=== PATIENT | female | born 1930 | race Caucasian/White ===

== ENCOUNTER 2016-12-01 11:44 | Inpatient (IN) ==
[2016-12-01] MEDS ORDERED: Famotidine 20 MG/2 ML VIAL IVP ONE (12:51)
[2016-12-01] MEDS ORDERED: *HR* Labetalol 100 MG/20 ML MDV IVP PRN (12:51)
[2016-12-01] MEDS ORDERED: *HR* Promethazine 25 MG/ML VIAL IVP PRN (12:51)
[2016-12-01] MEDS ORDERED: *HR* Morphine 2 MG/ML SYRINGE IVP PRN (12:51)
[2016-12-01] MEDS ORDERED: *HR* Propofol 200 MG/20 ML VIAL IVP ONE (12:53)
[2016-12-01] MEDS ORDERED: *HR* Midazolam HCl 2 MG/2 ML VIAL ONE (12:53)
[2016-12-01] MEDS ORDERED: *HR* FentaNYL (PF) 100 MCG/2 ML VIAL ONE (12:53)
[2016-12-01] MEDS ORDERED: Lidocaine -MPF 2% 2 ML VIAL ONE (12:54)
[2016-12-01] MEDS ORDERED: *HR* Succinylcholine 200 MG/10 ML VIAL IVP ONE (12:54)
--- NOTE | 2016-12-01 13:01 | Anesthesia Evaluation PreOp ---
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 Vertigo.) Other Medical History: Renal (stageIII renal insufficiency), Diabetes Type II ( maintained on Novolog, Levemir,), Other (OHOGAMIUT/hearing aids) Anesthesia History: No Prior Anesthetic Complications, Past Anesthesia (CABG x v 2013, sternal re-wiring 02/2015, Appy, Misti, IVC Filter, BTL, Ctaract surgery , Abcess surgery) Alcohol Use: none Drug use: none Medications and Allergies Aspirin 81 mg PO DAILY 11/06/15 [History] Insulin ASPART [NovoLOG] 4 - 10 unit SQ TIDWM PRN 11/06/15 [History] Insulin DETEMIR [Levemir] 12 unit SQ QAM 11/06/15 [History] Simvastatin [Zocor] 10 mg PO DAILY 11/06/15 [History] Gabapentin [Neurontin] 100 mg PO TID PRN 11/28/15 [History] Rivaroxaban [Xarelto] 10 mg PO DAILY 07/04/16 [History] amLODIPine [Norvasc] 5 mg PO BID #60 tablet 07/06/16 [Rx] Lisinopril [Zestril] 40 mg PO DAILY 11/05/16 [History] hydroCHLOROthiazide [Hydrochlorothiazide] 12.5 mg PO DAILY 11/05/16 [History] FentaNYL PATCH [Duragesic] 12 mcg TD Q72H #2 patch.td72 11/17/16 [Rx] OxyCODONE/APAP 10/325 [Percocet 10/325 MG] 1 each PO Q4H #20 tablet 11/17/16 [Rx ] Lidocaine Patch [Lidoderm 5% patch] 1 each TP DAILY PRN 12/01/16 [History] Methyl Salicylate/Menthol [Bengay] 1 appl TP BID PRN 12/01/16 [History] Metoprolol [Lopressor] 12.5 mg PO BID 12/01/16 [History] Allergies Penicillins [PCN] Allergy (Verified 12/01/16 12:33) Rash Hydromorphone [From Dilaudid] Adverse Reaction (Verified 12/01/16 12:33) Gastrointestinal Upset - Meds/Allergy Pre-op Review Medications Reviewed: Yes Allergies Reviewed: Yes Beta Blockers on Current Med List: No Anesthesia Results - Labs Laboratory Tests 11/21/16 11/21/16 11/28/16 18:53 18:53 15:15 WBC 8.8 RBC 3.73 L Hgb 11.8 Hct 36.4 Plt Count 423 H PT 14.7 H INR 1.4 APTT 32.9 Sodium 141 Potassium 4.0 Chloride 104 Carbon Dioxide 26 BUN 27 H Creatinine 1.35 H Est GFR (Non-Af Amer) 37 L Glucose 115 H Est Mean Plasma Glucose 11/28/16 15:15 WBC RBC Hgb Hct Plt Count PT INR APTT Sodium Potassium Chloride Carbon Dioxide BUN Creatinine Est GFR (Non-Af Amer) Glucose Est Mean Plasma Glucose 157 - Imaging EKG: image reviewed (62bpm SR, non-specific ST-T wave abnormality) Anesthesia Exam O2 Sat Height 1.6 m Weight 83.915 kg Height: 5'3" Weight: 185# BMI = 33 NPO (# of Hours): MNoc - HEENT Pupil (Motor): Pupils equal, EOMI Mallampati: II Teeth: Edentulous Denture Type: Upper: Complete Oral Opening: Greater than 3 - GAS MAIN FITTER LOC: Oriented GAS MAIN FITTER Motor: Normal RUE, Normal RLE, Normal LLE, Normal Face, Deficit LUE GAS MAIN FITTER Sensory: Normal: RUE, RLE, LLE, Face, Deficit: LUE - Cardiac Rhythm: Regular Murmur: None - Pulmonary Breath Sounds: bilateral Clear Respiratory Effort: Symmetrical Anesthesia Assess/Plan ASA Score: 3 (CAD, DM, HTN, Chol, ALICE) Modified Jb Scale for Level of Consciousness: Cooperative, oriented, and tranquil Anesthetic Plan: General, Regional Autologous Blood: No Monitoring Plan: Standard Monitors Recovery Plan: PACU Anes Supervising Prov Stmt: Pt seen/evaluated, R&B Discussed questions answered and consent obtained. Catalina Layton MD
--- NOTE | 2016-12-01 13:03 | History & Physical Report ---
Date of Encounter: 12/01/16 Time of Encounter: 13:03 24 Hour HP Update - Instructions Instructions: If the History and Physical is less than 30 days old and was completed prior to A.M. admission and or procedure and has NOT been updated on calendar day of procedure please complete this update prior to performing procedure. - Update Patient reports changes in Medical Condition: No Changes in examination, assessment, or condition: No Changes in Medication: No Preop tests/diagnostics Reviewed: Yes Surgery Remains Indicated: Yes Consent for Planned Operative Procedure(s) Verified: Yes - Pre-Operative Checklist Preoperative Checklist Indicated: No Prophylactic Antibiotic Ordered: Yes Is VTE Prophylaxis Indicated?: Yes
[2016-12-01] MEDS ORDERED: ROPIVACAINE HCL/PF 0.5% 30 ML VIAL ONE (13:07)
[2016-12-01] MEDS ORDERED: Tetracaine/PF 20 MG/2 ML AMPUL ONE (13:08)
[2016-12-01] MEDS ORDERED: Gabapentin 300 MG CAPSULE PO STA (13:12)
[2016-12-01] MEDS ORDERED: Acetaminophen IV 1,000 MG/100 ML INFUS..BTL IVPB ONE (13:12)
[2016-12-01] MEDS ORDERED: Clindamycin 900 MG/50 ML 900 MG/50 ML IV.SOLN IVPB ONE (13:24)
[2016-12-01] MEDS ORDERED: Ringers Solution, Lactated 1,000 ML IVC SCH ×2 (13:30→17:15)
[2016-12-01] MEDS ORDERED: Acetaminophen IV 1,000 MG/100 ML INFUS..BTL ONE (14:04)
[2016-12-01] MEDS ORDERED: Bupivacaine/Clonidine Syringe 1 EACH SYRINGE ONE (14:08)
--- NOTE | 2016-12-01 14:24 | Anesthesia Procedures ---
Date of Encounter: 12/01/16 Time of Encounter: 14:22 Procedures: Anesthesia - Nerve Block Procedure Date: 12/01/16 Time: 14:22 Allergies/Adv Reactions: Penicillins [PCN] Allergy (Verified 12/01/16 12:33) Rash Hydromorphone [From Dilaudid] Adverse Reaction (Verified 12/01/16 12:33) Gastrointestinal Upset Pre-op Diagnosis: left shoulder fracture Surgical Procedure: left total shoulder Checklist: Correct Patient Identifier, Correct procedure, History checked Correct side: Left Blood Thinner: Yes (ASA and Lovenox bridge, risks and benefits discussed) Monitor Applied: BP, Pulse Oximetry Supplemental Oxygen via Nasal Cannula (L/min): 2 Sedation: Fentanyl (mcg): 50 Indication: Post Op Analgesia Pre-op Neuro Deficits: No Block Type: Supraclavicular Catheter placed: No Sterile Technique: Yes Ultrasound used: Yes Anatomy identified: Yes Visual spread of Local: Yes Neuro Stimulation: No Blood on Needle Aspiration: No Smooth Injection of Local: Yes Pain with Injection of Local: No Prep: Chlorhexadine Needle: 22 x 50 mm Stimuplex Local: Ropivacaine (0.5%) Volume (cc): 30 Number of Attempts: 1 Complications: None/effective block
[2016-12-01] MEDS ORDERED: EPHEDrine 50 MG/ML VIAL ONE (15:38)
[2016-12-01] MEDS ORDERED: Ondansetron 4 MG/2 ML VIAL ONE (15:52)
[2016-12-01] MEDS ORDERED: Dexamethasone 4 MG/ML VIAL ONE (15:52)
--- NOTE | 2016-12-01 16:23 | Discharge Summary ---
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 (2) History of pulmonary embolus (PE) Priority: Secondary Status: Chronic (3) History of four vessel coronary artery bypass graft Priority: Secondary Status: Chronic (4) DM type 2 (diabetes mellitus, type 2) Priority: Secondary Status: Chronic Qualifiers: Diabetes mellitus complication status: without complication Diabetes mellitus custodial insulin use: unspecified custodial insulin use status Qualified Code(s): E11.9 - Type 2 diabetes mellitus without complications (5) CKD (chronic kidney disease) stage 3, GFR 30-59 ml/min Priority: Secondary Status: Chronic (6) Chronic lower back pain Priority: Secondary Status: Chronic Qualifiers: Back pain laterality: unspecified Sciatica presence: unspecified whether sciatica present Qualified Code(s): M54.5 - Low back pain; G89.29 - Other chronic pain (7) Fracture, humerus, proximal Priority: Primary Status: Acute Qualifiers: Encounter type: subsequent encounter Fracture type: closed Fracture morphology: other fracture Fracture alignment: displaced Laterality: left Fracture healing: with routine healing Qualified Code(s): S42.292D - Other displaced fracture of upper end of left humerus, subsequent encounter for fracture with routine healing (8) Hypertension Priority: Secondary Status: Chronic Qualifiers: Hypertension type: unspecified secondary hypertension Qualified Code(s): I15.9 - Secondary hypertension, unspecified; I15 - Secondary hypertension - Discharge Medications Home Medications: Aspirin 81 mg PO DAILY 11/06/15 [History] Insulin ASPART [NovoLOG] 4 - 10 unit SQ TIDWM PRN 11/06/15 [History] Insulin DETEMIR [Levemir] 12 unit SQ QAM 11/06/15 [History] Simvastatin [Zocor] 10 mg PO DAILY 11/06/15 [History] Gabapentin [Neurontin] 100 mg PO TID PRN 11/28/15 [History] Rivaroxaban [Xarelto] 10 mg PO DAILY 07/04/16 [History] amLODIPine [Norvasc] 5 mg PO BID #60 tablet 07/06/16 [Rx] Lisinopril [Zestril] 40 mg PO DAILY 11/05/16 [History] hydroCHLOROthiazide [Hydrochlorothiazide] 12.5 mg PO DAILY 11/05/16 [History] FentaNYL PATCH [Duragesic] 12 mcg TD Q72H #2 patch.td72 11/17/16 [Rx] OxyCODONE/APAP 10/325 [Percocet 10/325 MG] 1 each PO Q4H #20 tablet 11/17/16 [Rx ] Lidocaine Patch [Lidoderm 5% patch] 1 each TP DAILY PRN 12/01/16 [History] Methyl Salicylate/Menthol [Bengay] 1 appl TP BID PRN 12/01/16 [History] Metoprolol [Lopressor] 12.5 mg PO BID 12/01/16 [History] Allergies/Adverse Reactions: Allergies Penicillins [PCN] Allergy (Verified 12/01/16 12:33) Rash Hydromorphone [From Dilaudid] Adverse Reaction (Verified 12/01/16 12:33) Gastrointestinal Upset Labs on day of discharge: Labs from last 24 hours 12/01/16 13:46 POC Glucose 198 H Primary care physician: Vic Glasgow MD - Patient Status Disposition: Transfer Inpatient Rehab Fac Condition: Good Functional capacity at discharge: independent ambulation Overall status at discharge: patient is progressing back to baseline - Discharge Instructions Follow Up With: Vic Glasgow MD [Primary Care Provider] - - Hospital Course Hospital course: Ms. Velasco is a 85 year old female The patient had an uneventful postoperative course. They received antibiotics and physical therapy and were discharged in stable condition. There will follow -up in the office in 2 weeks. - Time Spent with Patient Total time spent providing and/or coordinating discharge services:
--- NOTE | 2016-12-01 16:29 | Orthopedic Operative Note ---
Date of procedure: 12/01/16 Pre-op diagnosis: Displaced left proximal humerus fracture Post-op diagnosis: same Procedure: Procedure: Left Reverse total shoulder replacment, Estimated blood loss: 100 cc Hardware: Metal and polyethylene replacement Arthrex glenoid baseplate: Small , 2 4.5 screws. 1 6.5 screw, glenosphere: 39+4 , humeral stem: 9 , poly insert: 3 constrained Procedural Notes: Displaced comminuted proximal humerus fracture Operative procedure: The patient was brought to the operating room and placed on the operating room table. After general anesthesia was administered the operative shoulder was examined. Findings were noted. The patient was placed in the modified beachchair position. All pressure points were padded appropriately. And the head was stabilized in the neutral position. The operative extremity was prepped and draped in the sterile surgical fashion. The patient received IV antibiotics prior to skin incision. A standard deltopectoral approach was made to the operative shoulder. Incision was made to the skin and subcutaneous tissue,hemo stasis was obtained with Bovie cautery. Using careful blunt dissection the cephalic vein was identified and mobilized medially. The deltopectoral interval was developed and the clavipectoral fascia was incised. The lesser tuberosity was identified and tagged with 2 #2 fiber loops and 2 #2 FiberWire suture. The greater tuberosity was identified and tagged with 6 #5 FiberWire suture. The humeral head was removed. Anterior and posterior Bankart retractors were placed to expose the glenoid. The glenoid guide was seated and the centering hole was made. It was reamed with the appropriate reamer. The small baseplate was seated and secured with (2 ) 4.5 screws and one 6.5 screw. The baseplate was irrigated and dried and the appropriate last year was seated and secured with the Croft taper. The Croft taper was tested and found to be secure the humerus was redislocated and prepared with the diaphyseal reamers, followed by a broaching process up to the appropriate size in 20 degrees of retro-version. Trial reduction found the shoulder to be relocatable. Trial components were removed and [address] on either side of the bicpital groove and filled with #5 fiberwire for vertical fixation of the tuberosities. The real humeral component was impaced in place in 20 degrees of retroversion. Trial reduction found the shoulder to be relocatable and stable with the appropriate inserts. Trial component was removed and the real implant/s was seated and secured the shoulder was reduced. The shoulder had excellent motion and excellent stability and no evidence of dislocation. The greater tuberosity was reduced and repaired to the implant with 2 # 5 fiberwire sutures. the lesser tuberosity was reduced and repaired to this construct with 2 #5 fiberwire sutures. Vertical fixation of the tuberosities was accomplished with the #5 fiberwire sutures in the humeral shaft in a box stitch type repair. The deep tissue was irrigated with pulse irrigation. The deltopectoral interval was closed with a running #1 PDS suture, subcutaneous tissue was irrigated and closed with 0 PDS suture, the skin was closed with skin dejan. The patient was placed in a sterile dressing, abduction brace and extubated. The patient was then transferred to the recovery room in stable condition. Anesthesia: GETA Surgeon: Federico Scales Condition: stable Disposition: PACU
--- NOTE | 2016-12-01 16:57 | Anesthesia Evaluation Post Op ---
Date of Encounter: 12/01/16 Time of Encounter: 16:56 - Vital Signs Vital Signs: vss - Lungs Lungs: Clear Ascult./Percussion - Airway Airway: Non-obstructed - Cardiovascular Baseline Rhythm - Mental Status Mental Status: Asleep with brisk response to light stimulation - Pain Pain Scale used: Parviz (Faces) - Nausea Vomiting Nausea Vomiting: Not Present - Hydration Hydration: Ice chips - Discharge PostOp Status: Transfer Patient to floor
[2016-12-01] MEDS ORDERED: MOM Conc 10 ML UD.LIQ PO PRN (17:15)
[2016-12-01] MEDS ORDERED: Sennosides 8.6 MG TABLET PO PRN (17:15)
[2016-12-01] MEDS ORDERED: *HR* OxyCODONE/APAP 10/325 TABLET PO SCH (17:15)
[2016-12-01] MEDS ORDERED: INSULIN ASPART 6 UNIT SQ PRN (17:15)
[2016-12-01] MEDS ORDERED: Naloxone 0.4 MG/ML INJ IVP PRN (17:15)
[2016-12-01] MEDS ORDERED: *HR* FentaNYL PATCH 12 MCG PATCH TD SCH (17:15)
[2016-12-01] MEDS ORDERED: Methyl Salicylate/Menthol 28 GM TUBE TP PRN (17:15)
[2016-12-01 17:23] LABS: Hematocrit 37.3 % (35.3-44.9); Hemoglobin 11.9 g/dL (11.5-15.4)
[2016-12-01] MEDS ORDERED: D5% in Water 1,000 ML IVC PRN (18:15)
[2016-12-01] MEDS ORDERED: *HR* Dextrose 50 % in Water (Syg) 50 ML SYRINGE IVP PRN (18:15)
[2016-12-01] MEDS ORDERED: Dextrose Gel 15 GM PO PRN ×2 (18:15)
[2016-12-01] MEDS: amLODIPine 5 MG TABLET PO SCH (20:27)
[2016-12-01] MEDS: Insulin LISPRO 300 UNITS/3 ML VIAL SQ SCH (20:27)
[2016-12-01] MEDS ORDERED: Temazepam 15 MG CAPSULE PO PRN (21:00)
[2016-12-01] MEDS: Clindamycin 900 MG/50 ML 900 MG/50 ML IV.SOLN IVPB SCH (23:51)
[2016-12-01] MEDS: *HR* OxyCODONE/APAP 10/325 TABLET PO PRN (23:58)
[2016-12-02 04:42] LABS: Hematocrit 32.4 % (35.3-44.9); Hemoglobin 10.4 g/dL (11.5-15.4)
--- NOTE | 2016-12-02 06:47 | Orthopedics Progress Note ---
Date of Encounter: 12/02/16 Time of Encounter: 06:47 - Assessment and Plan (1) ALICE (obstructive sleep apnea) Current Visit: Yes Status: Chronic (2) History of pulmonary embolus (PE) Current Visit: Yes Status: Chronic (3) History of four vessel coronary artery bypass graft Current Visit: Yes Status: Chronic (4) DM type 2 (diabetes mellitus, type 2) Current Visit: No Status: Chronic Qualifiers: Diabetes mellitus complication status: without complication Diabetes mellitus exterminator termite insulin use: unspecified custodial insulin use status Qualified Code(s): E11.9 - Type 2 diabetes mellitus without complications (5) CKD (chronic kidney disease) stage 3, GFR 30-59 ml/min Current Visit: No Status: Chronic (6) Chronic lower back pain Current Visit: No Status: Chronic Qualifiers: Back pain laterality: unspecified Sciatica presence: unspecified whether sciatica present Qualified Code(s): M54.5 - Low back pain; G89.29 - Other chronic pain (7) Fracture, humerus, proximal Current Visit: No Status: Acute Qualifiers: Encounter type: subsequent encounter Fracture type: closed Fracture morphology: other fracture Fracture alignment: displaced Laterality: left Fracture healing: with routine healing Qualified Code(s): S42.292D - Other displaced fracture of upper end of left humerus, subsequent encounter for fracture with routine healing (8) Hypertension Current Visit: No Status: Chronic Qualifiers: Hypertension type: unspecified secondary hypertension Qualified Code(s): I15.9 - Secondary hypertension, unspecified; I15 - Secondary hypertension Subjective Interval history: Patient was seen this morning doing well without complaints. Afebrile vital signs stable. Operative extremity: Neurovascularly intact Dressing clean dry and intact Calves nontender Assessment and plan: Continue with postoperative care Hematocrit 32 Objective Vital signs: Vital Signs Temp Pulse Resp BP Pulse Ox 12/02/16 06:42 98.2 F 61 16 132/69 98 12/02/16 05:16 97 12/02/16 04:30 97.8 F 67 16 143/79 97 12/01/16 23:53 97.8 F 58 17 130/75 95 12/01/16 20:25 97.6 F 88 15 131/78 96 12/01/16 19:25 97.7 F 85 14 156/78 97 12/01/16 18:36 97.6 F 79 14 124/73 96 12/01/16 17:59 97.5 F L 78 12 114/71 94 12/01/16 17:25 97.7 F 79 12 132/72 94 12/01/16 17:06 97.9 F 76 18 127/64 96 12/01/16 16:56 97.9 F 77 18 135/59 96 12/01/16 16:46 78 18 130/64 96 12/01/16 16:36 76 18 127/50 96 12/01/16 16:26 97.4 F L 81 18 139/77 93 12/01/16 14:24 65 18 176/81 99 12/01/16 13:46 98.6 F 73 16 143/73 97 Intake and Output 12/01/16 12/01/16 12/02/16 15:59 23:59 07:59 Intake Total 240 / 240 250 / 250 Output Total 300 / 300 100 / 100 Balance -60 / -60 150 / 150 Intake: IV Fluids 50 / 50 Cleocin Premix 900 MG/50 50 / 50 ML 900 mg In 50 ml @ 50 mls/hr IVPB Q8HR [facility] Rx#: [id number] Oral 240 / 240 200 / 200 Output: Urine 200 / 200 100 / 100 Estimated Blood Loss 100 / 100 Other: Stool Size Small Stool Consistency soft formed # Bowel Movements 1 Weight 83.915 kg Blood Glucose* 198 293 - Labs CBC & BMP: 12/02/16 03:56 Labs: Abnormal lab results Hgb 10.4 g/dL (11.5-15.4) L D 12/02/16 03:56 Hct 32.4 % (35.3-44.9) L 12/02/16 03:56 POC Glucose 293 (58-89) H 12/01/16 20:06 - VTE Documentation of Mechanical Device: Venous foot pump, device Consult Discharge Plan - Plan Referrals: Vic Glasgow MD [Primary Care Provider] -
[2016-12-02] MEDS: Clindamycin 900 MG/50 ML 900 MG/50 ML IV.SOLN IVPB SCH (08:07)
[2016-12-02] MEDS: Insulin LISPRO 300 UNITS/3 ML VIAL SQ SCH ×4 (08:08→21:17)
[2016-12-02] MEDS: *HR* Rivaroxaban 10 MG TABLET PO SCH (08:08)
[2016-12-02] MEDS: amLODIPine 5 MG TABLET PO SCH (08:08)
[2016-12-02] MEDS: hydroCHLOROthiazide 25 MG TABLET PO SCH (08:08)
[2016-12-02] MEDS: Lisinopril 20 MG TABLET PO SCH (08:09)
[2016-12-02] MEDS: Aspirin 81 MG TAB.CHEW PO SCH (08:09)
[2016-12-02] MEDS ORDERED: NON-FORMULARY MEDICATION 1 EACH EACH (Insulin Detemir 12 UNIT) SQ SCH (09:00)
[2016-12-02] MEDS: *HR* OxyCODONE/APAP 10/325 TABLET PO PRN ×3 (10:11→19:56)
[2016-12-02] MEDS: Insulin DETEMIR 100 UNIT/ML X5UNITS SQ SCH (10:13)
[2016-12-02] MEDS: Gabapentin 100 MG CAPSULE PO PRN (12:12)
[2016-12-02] MEDS: Ondansetron 4 MG/2 ML VIAL IVP PRN (13:45)
[2016-12-03] MEDS: amLODIPine 5 MG TABLET PO SCH ×3 (00:06→21:58)
[2016-12-03 04:58] LABS: Hemoglobin 10.3 g/dL (11.5-15.4)
[2016-12-03] MEDS: *HR* OxyCODONE/APAP 10/325 TABLET PO PRN ×2 (06:11→18:07)
[2016-12-03] MEDS: Insulin LISPRO 300 UNITS/3 ML VIAL SQ SCH ×4 (08:41→21:59)
[2016-12-03] MEDS: hydroCHLOROthiazide 25 MG TABLET PO SCH (08:41)
[2016-12-03] MEDS: Aspirin 81 MG TAB.CHEW PO SCH (08:41)
[2016-12-03] MEDS: Lisinopril 20 MG TABLET PO SCH (08:42)
[2016-12-03] MEDS: *HR* Rivaroxaban 10 MG TABLET PO SCH (08:42)
[2016-12-03] MEDS: Gabapentin 100 MG CAPSULE PO PRN ×2 (09:11→21:58)
[2016-12-03] MEDS: Insulin DETEMIR 100 UNIT/ML X5UNITS SQ SCH (10:27)
[2016-12-04] MEDS: *HR* OxyCODONE/APAP 10/325 TABLET PO PRN ×4 (07:36→23:46)
[2016-12-04] MEDS: Lisinopril 20 MG TABLET PO SCH (09:45)
[2016-12-04] MEDS: *HR* Rivaroxaban 10 MG TABLET PO SCH (09:45)
[2016-12-04] MEDS: Insulin LISPRO 300 UNITS/3 ML VIAL SQ SCH ×4 (09:46→20:47)
[2016-12-04] MEDS: amLODIPine 5 MG TABLET PO SCH ×2 (09:46→20:47)
[2016-12-04] MEDS: hydroCHLOROthiazide 25 MG TABLET PO SCH (09:46)
[2016-12-04] MEDS: Aspirin 81 MG TAB.CHEW PO SCH (09:46)
[2016-12-04] MEDS: Insulin DETEMIR 100 UNIT/ML X5UNITS SQ SCH (09:47)
--- NOTE | 2016-12-04 18:17 | Orthopedics Progress Note ---
Date of Encounter: 12/04/16 Time of Encounter: 18:15 - Assessment and Plan (1) Fracture, humerus, proximal Current Visit: No Status: Acute Postoperative day #3, stable Discharge planning Qualifiers: Encounter type: subsequent encounter Fracture type: closed Fracture morphology: other fracture Fracture alignment: displaced Laterality: left Fracture healing: with routine healing Qualified Code(s): S42.292D - Other displaced fracture of upper end of left humerus, subsequent encounter for fracture with routine healing Subjective Principal diagnosis: Left proximal fracture Interval history: Patient comfortable Patient is not ambulating much She is voiding small quantities which she states is baseline Objective Vital signs: Vital Signs Temp Pulse Resp BP Pulse Ox 12/04/16 16:14 98.1 F 71 16 133/70 94 12/04/16 11:40 98.9 F 70 18 128/69 95 12/04/16 07:00 99.2 F 96 16 148/63 93 12/03/16 23:39 98.5 F 89 16 134/68 97 12/03/16 18:20 98.5 F 87 16 159/76 94 Intake and Output 12/04/16 12/04/16 12/04/16 07:59 15:59 23:59 Intake Total 120 / 120 0 / 0 Output Total 300 / 300 25 / 25 Balance -300 / -300 95 / 95 0 / 0 Intake: Oral 120 / 120 0 / 0 Output: Urine 300 / 300 25 / 25 Other: Meal Breakfast Dinner Percent of Meal Consumed 15% 90% Stool Size Small Stool Consistency soft formed Stool Color Brown Blood Glucose* 155 240 194 Incision: clean and dry (Left shoulder dressings 40% soaked through, patient is neurovascular intact distally at left hand) - Labs CBC & BMP: 12/03/16 04:31 Labs: Abnormal lab results Hgb 10.3 g/dL (11.5-15.4) L 12/03/16 04:31 Hct 34.0 % (35.3-44.9) L 12/03/16 04:31 POC Glucose 240 (58-89) H 12/04/16 11:46 - VTE Documentation of Mechanical Device: Venous foot pump, device Consult Discharge Plan - Plan Referrals: Vic Glasgow MD [Primary Care Provider] -
[2016-12-05] MEDS: *HR* OxyCODONE/APAP 10/325 TABLET PO PRN ×3 (04:45→18:40)
[2016-12-05] MEDS: Ondansetron 4 MG/2 ML VIAL IVP PRN (05:58)
[2016-12-05] MEDS: Aspirin 81 MG TAB.CHEW PO SCH (08:17)
[2016-12-05] MEDS: hydroCHLOROthiazide 25 MG TABLET PO SCH (08:18)
[2016-12-05] MEDS: *HR* Rivaroxaban 10 MG TABLET PO SCH (08:18)
[2016-12-05] MEDS: amLODIPine 5 MG TABLET PO SCH ×2 (08:18→21:38)
[2016-12-05] MEDS: Lisinopril 20 MG TABLET PO SCH (08:18)
[2016-12-05] MEDS: Insulin LISPRO 300 UNITS/3 ML VIAL SQ SCH ×4 (08:23→21:38)
[2016-12-05] MEDS: Insulin DETEMIR 100 UNIT/ML X5UNITS SQ SCH (08:33)
--- NOTE | 2016-12-05 09:39 | Orthopedics Progress Note ---
Date of Encounter: 12/05/16 Time of Encounter: 09:38 - Assessment and Plan (1) Fracture, humerus, proximal Current Visit: No Status: Acute POD#4 - Left TSR, due to humerus fracture 12/01/16. NWB to LUE, No Shoulder motion. Stay in slingshot. 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 ICE as tolerated. H/H stable. Encouraged Ensure with mealtimes, continued fluid and MOM as needed. Qualifiers: Encounter type: subsequent encounter Fracture type: closed Fracture morphology: other fracture Fracture alignment: displaced Laterality: left Fracture healing: with routine healing Qualified Code(s): S42.292D - Other displaced fracture of upper end of left humerus, subsequent encounter for fracture with routine healing Subjective Principal diagnosis: Left proximal fracture Interval history: POD#4 - Left TSR-r - due to Proximal humerus fracture Patient doing fair, feeling weak and constipated this morning. Lack of appetitite. She was given Zofran this morning, along with MOM. She admits to having one small BM yesterday. Denies ABD pain. Afebrile, vitals are stable. Repeat H/H 04/07 today. LUE: Dressing c/d/i - approx 20% bloody saturation. Ecchymosis noted. Swelling +, no forearm tenderness. ROM limited, NV intact distally. Objective Vital signs: Vital Signs Temp Pulse Resp BP Pulse Ox 12/05/16 07:19 98.6 F 91 147/76 93 12/05/16 03:31 99.0 F 79 20 151/62 95 12/04/16 23:17 98.9 F 78 20 167/68 100 12/04/16 20:00 96 12/04/16 18:56 98.2 F 78 18 127/59 96 12/04/16 16:14 98.1 F 71 16 133/70 94 12/04/16 11:40 98.9 F 70 18 128/69 95 Intake and Output 12/04/16 12/05/16 12/05/16 23:59 07:59 15:59 Intake Total 0 / 0 0 / 0 120 / 120 Output Total 200 / 200 200 / 200 Balance -200 / -200 -200 / -200 120 / 120 Intake: Oral 0 / 0 0 / 0 120 / 120 Output: Urine 200 / 200 200 / 200 Other: Meal Dinner Breakfast Percent of Meal Consumed 90% 30% Weight 82 kg Blood Glucose* 118 169 Patient Weight 12/05/16 23:59 Weight 82 kg Incision: clean and dry - Labs CBC & BMP: 12/05/16 09:57 Labs: Abnormal lab results Hgb 10.3 g/dL (11.5-15.4) L 12/03/16 04:31 Hct 34.0 % (35.3-44.9) L 12/03/16 04:31 POC Glucose 169 (58-89) H 12/05/16 07:00 - VTE Documentation of Mechanical Device: Venous foot pump, device Consult Discharge Plan - Plan Referrals: Vic Glasgow MD [Primary Care Provider] -
[2016-12-05 10:17] LABS: Hematocrit 30.8 % (35.3-44.9); Hemoglobin 9.7 g/dL (11.5-15.4)
[2016-12-05] MEDS: Gabapentin 100 MG CAPSULE PO PRN ×2 (11:35→18:40)
[2016-12-05] MEDS: ALPRAZolam 0.5 MG TABLET PO PRN (11:36)
[2016-12-05] MEDS ORDERED: 0.9 % Sodium Chloride 500 ML IVC ONE (17:49)
[2016-12-06] MEDS: *HR* OxyCODONE/APAP 10/325 TABLET PO PRN ×2 (00:13→06:16)
--- NOTE | 2016-12-06 06:32 | Orthopedics Progress Note ---
Date of Encounter: 12/06/16 Time of Encounter: 06:32 - Assessment and Plan (1) ALICE (obstructive sleep apnea) Current Visit: Yes Status: Chronic (2) History of pulmonary embolus (PE) Current Visit: Yes Status: Chronic (3) History of four vessel coronary artery bypass graft Current Visit: Yes Status: Chronic (4) DM type 2 (diabetes mellitus, type 2) Current Visit: No Status: Chronic Qualifiers: Diabetes mellitus complication status: without complication Diabetes mellitus extermination inspector insulin use: unspecified senior care insulin use status Qualified Code(s): E11.9 - Type 2 diabetes mellitus without complications (5) CKD (chronic kidney disease) stage 3, GFR 30-59 ml/min Current Visit: No Status: Chronic (6) Chronic lower back pain Current Visit: No Status: Chronic Qualifiers: Back pain laterality: unspecified Sciatica presence: unspecified whether sciatica present Qualified Code(s): M54.5 - Low back pain; G89.29 - Other chronic pain (7) Fracture, humerus, proximal Current Visit: No Status: Acute Qualifiers: Encounter type: subsequent encounter Fracture type: closed Fracture morphology: other fracture Fracture alignment: displaced Laterality: left Fracture healing: with routine healing Qualified Code(s): S42.292D - Other displaced fracture of upper end of left humerus, subsequent encounter for fracture with routine healing (8) Hypertension Current Visit: No Status: Chronic Qualifiers: Hypertension type: unspecified secondary hypertension Qualified Code(s): I15.9 - Secondary hypertension, unspecified; I15 - Secondary hypertension Subjective Principal diagnosis: Left proximal fracture Interval history: Patient was seen this morning doing well without complaints. Afebrile vital signs stable. Operative extremity: Neurovascularly intact Dressing clean dry and intact Calves nontender Assessment and plan: Continue with postoperative care Discharge today Objective Vital signs: Vital Signs Temp Pulse Resp BP Pulse Ox 12/06/16 03:09 98.7 F 73 20 114/67 97 12/05/16 23:02 98.6 F 76 18 112/63 95 12/05/16 19:11 98.7 F 90 16 122/67 94 12/05/16 15:33 97.7 F 74 17 125/68 93 12/05/16 12:19 97.7 F 73 16 161/71 94 12/05/16 07:19 98.6 F 91 147/76 93 Intake and Output 12/05/16 12/05/16 12/06/16 15:59 23:59 07:59 Intake Total 120 / 120 Output Total 175 / 175 100 / 100 Balance 120 / 120 -175 / -175 -100 / -100 Intake: Oral 120 / 120 Output: Urine 175 / 175 100 / 100 Other: Meal Breakfast Percent of Meal Consumed 30% # Urine Diapers 1 Weight 83.3 kg Blood Glucose* 142 213 Patient Weight 12/06/16 23:59 Weight 83.3 kg - Labs CBC & BMP: 12/05/16 09:57 Labs: Abnormal lab results Hgb 9.7 g/dL (11.5-15.4) L 12/05/16 09:57 Hct 30.8 % (35.3-44.9) L 12/05/16 09:57 POC Glucose 213 (58-89) H 12/05/16 21:00 - VTE Documentation of Mechanical Device: Venous foot pump, device Consult Discharge Plan - Plan Referrals: Vic Glasgow MD [Primary Care Provider] -
[2016-12-06] MEDS: Gabapentin 100 MG CAPSULE PO PRN ×2 (07:31→22:21)
[2016-12-06] MEDS: ALPRAZolam 0.5 MG TABLET PO PRN (07:31)
[2016-12-06] MEDS: Insulin LISPRO 300 UNITS/3 ML VIAL SQ SCH ×4 (07:33→22:39)
[2016-12-06] MEDS: Aspirin 81 MG TAB.CHEW PO SCH (09:31)
[2016-12-06] MEDS: hydroCHLOROthiazide 25 MG TABLET PO SCH (09:31)
[2016-12-06] MEDS: Lisinopril 20 MG TABLET PO SCH (09:33)
[2016-12-06] MEDS: amLODIPine 5 MG TABLET PO SCH ×2 (09:33→22:21)
[2016-12-06] MEDS: *HR* Rivaroxaban 10 MG TABLET PO SCH (09:34)
[2016-12-06] MEDS: Insulin DETEMIR 100 UNIT/ML X5UNITS SQ SCH (09:40)
[2016-12-07] MEDS: *HR* OxyCODONE/APAP 10/325 TABLET PO PRN ×2 (03:37→16:32)
[2016-12-07] MEDS: hydroCHLOROthiazide 25 MG TABLET PO SCH (08:23)
[2016-12-07] MEDS: Aspirin 81 MG TAB.CHEW PO SCH (08:24)
[2016-12-07] MEDS: amLODIPine 5 MG TABLET PO SCH (08:25)
[2016-12-07] MEDS: *HR* Rivaroxaban 10 MG TABLET PO SCH (08:25)
[2016-12-07] MEDS: Gabapentin 100 MG CAPSULE PO PRN (08:25)
[2016-12-07] MEDS: Lisinopril 20 MG TABLET PO SCH (08:32)
[2016-12-07] MEDS: Insulin LISPRO 300 UNITS/3 ML VIAL SQ SCH ×3 (08:39→16:33)
[2016-12-07] MEDS: Insulin DETEMIR 100 UNIT/ML X5UNITS SQ SCH (08:45)
--- NOTE | 2016-12-07 12:12 | Orthopedics Progress Note ---
Date of Encounter: 12/07/16 Time of Encounter: 08:00 Subjective Principal diagnosis: Left proximal fracture Interval history: Patient was seen this morning doing well without complaints. Afebrile vital signs stable. Operative extremity: Neurovascularly intact Dressing clean dry and intact Calves nontender Assessment and plan: Continue with postoperative care. Brace to be adjusted today on the floor. PT to do passive ROM of left elbow. Discharge today pending rehab placement. Objective Vital signs: Vital Signs Temp Pulse Resp BP Pulse Ox 12/07/16 07:51 98.2 F 74 17 123/63 98 12/07/16 04:22 98.5 F 73 18 148/68 93 12/06/16 23:00 99.4 F 84 18 143/61 93 12/06/16 22:15 93 12/06/16 18:55 98.5 F 85 16 115/51 94 12/06/16 14:05 98.7 F 76 17 118/75 98 Intake and Output 12/06/16 12/07/16 12/07/16 23:59 07:59 15:59 Intake Total 320 / 320 570 / 570 240 / 240 Output Total 550 / 550 200 / 200 Balance -230 / -230 370 / 370 240 / 240 Intake: Oral 320 / 320 570 / 570 240 / 240 Output: Urine 550 / 550 200 / 200 Other: Meal Dinner Breakfast Percent of Meal Consumed 50% 100% Weight 84.414 kg Blood Glucose* 187 182 213 Patient Weight 12/07/16 23:59 Weight 84.414 kg - Labs CBC & BMP: 12/05/16 09:57 Labs: Abnormal lab results Hgb 9.7 g/dL (11.5-15.4) L 12/05/16 09:57 Hct 30.8 % (35.3-44.9) L 12/05/16 09:57 POC Glucose 187 (58-89) H 12/06/16 21:01 - VTE Documentation of Mechanical Device: Venous foot pump, device Consult Discharge Plan - Plan Referrals: Vic Glasgow MD [Primary Care Provider] -
[2016-12-07 14:14] VITALS: BP 119/61
--- NOTE | 2016-12-07 17:29 | Discharge Summary ---
Date of Encounter: 12/07/16 - Discharge Medications Prescriptions: OxyCODONE Immed Rel [Roxicodone 5 MG] 10 mg PO Q4HR PRN #36 tablet PRN Reason: Pain Home Medications: Aspirin 81 mg PO DAILY 11/06/15 [History] Insulin ASPART [NovoLOG] 4 - 10 unit SQ TIDWM PRN 11/06/15 [History] Insulin DETEMIR [Levemir] 12 unit SQ QAM 11/06/15 [History] Simvastatin [Zocor] 10 mg PO DAILY 11/06/15 [History] Gabapentin [Neurontin] 100 mg PO TID PRN 11/28/15 [History] Rivaroxaban [Xarelto] 10 mg PO DAILY 07/04/16 [History] amLODIPine [Norvasc] 5 mg PO BID #60 tablet 07/06/16 [Rx] Lisinopril [Zestril] 40 mg PO DAILY 11/05/16 [History] hydroCHLOROthiazide [Hydrochlorothiazide] 12.5 mg PO DAILY 11/05/16 [History] FentaNYL PATCH [Duragesic] 12 mcg TD Q72H #2 patch.td72 11/17/16 [Rx] OxyCODONE/APAP 10/325 [Percocet 10/325 MG] 1 each PO Q4H #20 tablet 11/17/16 [Rx ] Lidocaine Patch [Lidoderm 5% patch] 1 each TP DAILY PRN 12/01/16 [History] Methyl Salicylate/Menthol [Bengay] 1 appl TP BID PRN 12/01/16 [History] Metoprolol [Lopressor] 12.5 mg PO BID 12/01/16 [History] OxyCODONE Immed Rel [Roxicodone 5 MG] 10 mg PO Q4HR PRN #36 tablet 12/07/16 [Rx] Allergies/Adverse Reactions: Allergies Penicillins [PCN] Allergy (Verified 12/01/16 12:33) Rash Hydromorphone [From Dilaudid] Adverse Reaction (Verified 12/01/16 12:33) Gastrointestinal Upset Labs on day of discharge: Labs from last 24 hours 12/06/16 12/06/16 12/06/16 21:01 16:11 11:01 POC Glucose 187 H 198 H 179 H 12/06/16 07:21 POC Glucose 166 H - Impressions ITS Impressions Shoulder X-Ray 12/01/16 15:49 IMPRESSION: Satisfactory appearance status post left shoulder arthroplasty. D/ / 12/01/2016 17:47:57 Boone Haro MD / [email or web address] Interpreting Provider: Boone Haro MD Date of admission: 12/01/16 17:09 Primary care physician: Vic Glasgow MD Consults: 12/01/16 17:15 Consult to Occupational Therapy [CONS] Routine Comment: post shoulder surgery Reason for Consult: post shoulder surgery Consult to Physical Therapy [CONS] Routine Comment: post shoulder surgery Reason for Consult: post shoulder surgery RT Post Op Consult [CONS] Routine 12/01/16 17:44 Consult to Nutrition [CONS] Routine Comment: Consulting Provider: NUTRITION Reason for Dietary Consult: MST Score Consult to Field Artillery Officer [CONS] Routine Reason for SW Consult: Possible ECF placement - Patient Status Disposition: Transfer Inpatient Rehab Fac Condition: Good - Discharge Instructions Instructions: Arm Fracture in Adults (DC) Follow Up With: Vic Glasgow MD [Primary Care Provider] - - Hospital Course Hospital course: Ms. Velasco is a 86 year old female - Time Spent with Patient Total time spent providing and/or coordinating discharge services: - VTE Documentation of Mechanical Device: Venous foot pump, device
== END 2016-12-07 18:00 | DRG 483 ==
LOC: SAMDAY 11:44 → 3NENU 17:09 → 3ANU 12-02 14:38
PROVIDERS: ADMIT Orthopaedic Surgery; ATTEND Orthopaedic Surgery

== ENCOUNTER 2017-02-24 10:27 | Inpatient (IN) ==
[2017-02-24] MEDS ORDERED: *HR* FentaNYL (PF) 100 MCG/2 ML VIAL IVP ONE (11:32)
--- NOTE | 2017-02-24 11:48 | Emergency Department Note ---
Disposition Clinical Impression: Low Back Pain Disposition: Admitted As Inpatient Condition: Good General Adult HPI - General Chief complaint: ED Back Pain/Injury Stated complaint: Low Back Pain Epidural Last week Time Seen by Provider: 02/24/17 10:49 Source: patient Limitations: no limitations Nursing Notes Reviewed: Yes Vital Signs Reviewed: Yes - History of Present Illness Pain Scale: 6 - Related Data Home Medications Medication Instructions Recorded Confirmed Aspirin 81 mg PO DAILY 11/06/15 02/24/17 Insulin ASPART [NovoLOG] 4 - 10 unit SQ TIDWM PRN 11/06/15 02/24/17 Insulin DETEMIR [Levemir] 12 unit SQ QAM 11/06/15 02/24/17 Simvastatin [Zocor] 10 mg PO DAILY 11/06/15 02/24/17 Gabapentin [Neurontin] 100 mg PO TID PRN 11/28/15 02/24/17 Lisinopril [Zestril] 40 mg PO DAILY 11/05/16 02/24/17 hydroCHLOROthiazide 12.5 mg PO DAILY 11/05/16 02/24/17 [Hydrochlorothiazide] Lidocaine Patch [Lidoderm 5% patch] 1 patch TP DAILY PRN 12/01/16 02/24/17 Methyl Salicylate/Menthol [Bengay] 1 appl TP BID PRN 12/01/16 02/24/17 Metoprolol [Lopressor] 12.5 mg PO BID 12/01/16 02/24/17 Baclofen 20 mg PO TID 02/24/17 02/24/17 Buspirone HCl [Buspar] 5 mg PO BID 02/24/17 02/24/17 HYDROcodone/Acet 5/325 mg [[place] 1 tab PO Q6H PRN 02/24/17 02/24/17 5-325 mg] Polyethylene Glycol 3350 [MiraLAX 17 gm PO DAILY 02/24/17 02/24/17 Powder Bulk 17.9 Oz] Rivaroxaban [Xarelto] 15 mg PO DAILY 02/24/17 02/24/17 Previous Rx's Medication Instructions Recorded amLODIPine [Norvasc] 5 mg PO BID #60 tablet 07/06/16 Docusate [Colace] 100 mg PO BID #20 capsule 01/03/17 Allergies Allergy/AdvReac Type Severity Reaction Status Date / Time Penicillins [PCN] Allergy Rash Verified 02/24/17 10:36 Hydromorphone [From Dilaudid] AdvReac Gastrointestinal Verified 02/24/17 10:36 Upset Past Medical History - Past Medical History Medical history: Reports: arthritis, atrial fibrillation, coronary artery disease, DVT, diabetes, hyperlipidemia, hypertension, myocardial infarction, pulmonary embolus, renal disease, other Surgical history: Reports: appendectomy, cataract, cholecystectomy, coronary bypass (CABG) Psychiatric history: Reports: anxiety SCIENTIFIC EDITOR history: Reports: no SCIENTIFIC EDITOR history - Social History Smoking Status: Never smoker Smokeless Tobacco Status: No Alcohol use: Reports: none Drug use: Reports: none Physical Exam - General Limitations: no limitations General appearance: alert, in no apparent distress Course Vital Signs Temperature 97.7 F 02/24/17 10:32 Pulse Rate 66 02/24/17 10:32 Respiratory Rate 18 02/24/17 10:32 Blood Pressure 168/78 02/24/17 10:32 O2 Sat by Pulse Oximetry 99 02/24/17 10:32 Temperature 97.7 F 02/24/17 10:32 Pulse Rate 59 02/24/17 16:05 Respiratory Rate 22 02/24/17 15:08 Blood Pressure 173/77 02/24/17 16:05 O2 Sat by Pulse Oximetry 93 02/24/17 16:41 Oxygen Delivery Oxygen Delivery Room Air Medical Decision Making - MDM Narrative Medical decision making narrative: I examined this patient and my medical decision-making was reviewed with the Resident Physician. I agree with the documented findings, disposition and treatment plan as described except to the extent set forth below. Patient presents today was seen by Dr. Hawthorne and myself, I agree with his evaluation and management plan, supervised the patients today. Patient comes in today after getting an epidural earlier this week and still having pain in the area preventing her from being on walk she has no new drug deficits the site looks good shows no signs of bleeding or infection. No significant control her pain better and then reassess and hopefully she may be able to to go home. Family is in agreement with this plan. 1300 hrs.: Patient still having pain despite getting the narcotics would not image her spine try to give her something else for pain and then determine whether she needs admission which she may for pain control. 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 Patient's in agreement with plan as his family. Lumbar Spine CT 02/24/17 13:00 IMPRESSION: 1. No acute fracture or subluxation of the lumbar spine or pelvis. 2. Stable chronic degenerative anterolisthesis of L4. 3. Gcch-iw-[id number] multilevel degenerate disc disease, as fully detailed above. This could be further characterized with a lumbar MRI, if clinically indicated. 4. Calcified uterine fibroids. 5. Colonic diverticulosis. D/ /24/2017 14:21:12 Juan R Chapa MD / costa Interpreting Provider: Juan R Chapa MD Pelvis CT 02/24/17 13:06 IMPRESSION: 1. No acute fracture or subluxation of the lumbar spine or pelvis. 2. Stable chronic degenerative anterolisthesis of L4. 3. Gbpf-[id number] multilevel degenerate disc disease, as fully detailed above. This could be further characterized with a lumbar MRI, if clinically indicated. 4. Calcified uterine fibroids. 5. Colonic diverticulosis. D/ /24/2017 14:21:12 Juan R Chapa MD / costa Interpreting Provider: Juan R Chapa MD - Lab Data Result diagrams: 02/24/17 15:48 02/24/17 15:48 Lab Results 02/24/17 Range/Units 12:43 POC Glucose 147 H (58-89)
--- NOTE | 2017-02-24 12:39 | Emergency Department Note ---
Disposition Clinical Impression: Low Back Pain Qualifiers: Chronicity: acute Back pain laterality: right Sciatica presence: without sciatica Qualified Code(s): M54.5 - Low back pain Disposition: Admitted As Inpatient Condition: Good Back Pain HPI - General Chief Complaint: ED Back Pain/Injury Stated Complaint: Low Back Pain Epidural Last week Time Seen by Provider: 02/24/17 10:49 Source: patient Limitations: no limitations Nursing Notes Reviewed: Yes Vital Signs Reviewed: Yes - History of Present Illness HPI Narrative: Patient here for evaluation of back pain. Patient has a history of chronic back pain that she has been seeing both Dr. Frost and Dr. Johnson for. Patient states she has got lumbar stenosis and has undergone epidural injections in the past. Patient had an epidural injection last May with significant relief the last for many months. Patient had most recent injection approximately 10 days ago where she had relief for proximally 3 days but then tried to push herself in order to regain some of her mobility and independence. She states that after this time she has experienced significant lower back pain begins in the right side appears to radiate across. Most tender location is across the SI joint. Patient is complaining his being able to stand up straight. There is no overt cellulitis or tenderness over previous epidural injection site. Patient does not have any tenderness to her groin or rectum. She has got no paresthesias to her feet. She states her numbness in her feet is actually improved since her tingling. On exam the patient's lower extremity muscle strength and reflexes are symmetric. She is not had any problems with bowel or bladder. She has not had any fevers or night sweats or weight loss. No history of cancer. - Related Data Home Medications Medication Instructions Recorded Confirmed Aspirin 81 mg PO DAILY 11/06/15 02/24/17 Insulin ASPART [NovoLOG] 4 - 10 unit SQ TIDWM PRN 11/06/15 02/24/17 Insulin DETEMIR [Levemir] 12 unit SQ QAM 11/06/15 02/24/17 Simvastatin [Zocor] 10 mg PO DAILY 11/06/15 02/24/17 Gabapentin [Neurontin] 100 mg PO TID PRN 11/28/15 02/24/17 Lisinopril [Zestril] 40 mg PO DAILY 11/05/16 02/24/17 hydroCHLOROthiazide 12.5 mg PO DAILY 11/05/16 02/24/17 [Hydrochlorothiazide] Lidocaine Patch [Lidoderm 5% patch] 1 patch TP DAILY PRN 12/01/16 02/24/17 Methyl Salicylate/Menthol [Bengay] 1 appl TP BID PRN 12/01/16 02/24/17 Metoprolol [Lopressor] 12.5 mg PO BID 12/01/16 02/24/17 Baclofen 20 mg PO TID 02/24/17 02/24/17 Buspirone HCl [Buspar] 5 mg PO BID 02/24/17 02/24/17 HYDROcodone/Acet 5/325 mg [[place] 1 tab PO Q6H PRN 02/24/17 02/24/17 5-325 mg] Polyethylene Glycol 3350 [MiraLAX 17 gm PO DAILY 02/24/17 02/24/17 Powder Bulk 17.9 Oz] Rivaroxaban [Xarelto] 15 mg PO DAILY 02/24/17 02/24/17 Previous Rx's Medication Instructions Recorded amLODIPine [Norvasc] 5 mg PO BID #60 tablet 07/06/16 Docusate [Colace] 100 mg PO BID #20 capsule 01/03/17 Allergies Allergy/AdvReac Type Severity Reaction Status Date / Time Penicillins [PCN] Allergy Rash Verified 02/24/17 10:36 Hydromorphone [From Dilaudid] AdvReac Gastrointestinal Verified 02/24/17 10:36 Upset Review of Systems: CONSTITUTIONAL: No weight loss, fever, chills, weakness or fatigue. HEENT: Eyes: No visual changes. Ears, Nose, Throat: No hearing loss, difficulty talking or unable to swallow. SKIN: No rash or itching. CARDIOVASCULAR: No chest pain, chest pressure or chest discomfort. No palpitations or edema. RESPIRATORY: No shortness of breath, cough or sputum. GASTROINTESTINAL: No anorexia, nausea, vomiting or diarrhea. No abdominal pain or blood. GENITOURINARY: No burning on urination or hematuria. NEUROLOGICAL: No headache, dizziness, syncope, paralysis, ataxia, numbness or tingling in the extremities. No change in bowel or bladder control. MUSCULOSKELETAL: Back pain. Past Medical History - Past Medical History Medical history: Reports: arthritis, atrial fibrillation, coronary artery disease, DVT, diabetes, hyperlipidemia, hypertension, myocardial infarction, pulmonary embolus, renal disease, other Surgical history: Reports: appendectomy, cataract, cholecystectomy, coronary bypass (CABG) Psychiatric history: Reports: anxiety SALES AND SERVICE ADVISOR history: Reports: no SALES AND SERVICE ADVISOR history - Social History Smoking Status: Never smoker Smokeless Tobacco Status: No Alcohol use: Reports: none Drug use: Reports: none Physical Exam General appearance: NAD, conversant Eyes: anicteric sclerae, moist conjunctivae; PERRL HENT: Atraumatic; oropharynx clear with moist mucous membranes and no mucosal ulcerations Neck: Normal inspection; Trachea midline; FROM, supple Lungs: CTA, with normal respiratory effort and no intercostal retractions CV: RRR, no MRGs Abdomen: Soft, non-tender; no rebound or gaurding Extremities: No peripheral edema or extremity lymphadenopathy Skin: Normal temperature; no rash, ulcers or lesions Psych: Appropriate mood and affect Neuro: alert and oriented to person, place and time - General Limitations: no limitations General appearance: alert, in no apparent distress - Back Exam Back exam: Present: normal inspection Back 1 view image: 1 - tender point. tenderness to palpation. - Neurological Exam Neurological exam: Present: alert, oriented X3 - Expanded Neurological Exam Patient oriented to: Present: person, place, time Speech: Present: fluid speech Cerebellar function: finger to nose: Normal Motor strength - LUE: 5/5 Motor strength - RUE: 5/5 Motor strength - LLE: 5/5 Motor strength - RLE: 5/5 Sensory exam upper extremity: light touch: Normal Sensory exam lower extremity: light touch: Normal Coma Scale Eye Opening: Spontaneous Coma Scale Motor Response: Obeys Commands Coma Scale Verbal Response: Oriented Coma Scale Total: 15 Course Course Narrative: Patient reevaluated multiple times during her stay and has been unable to ambulate. This is a change from her baseline where she has been able to ambulate and take care of all her activities of daily living at home where she lives by herself. Patient will be need to brought in for pain control as well as physical therapy. Vital Signs Temperature 97.7 F 02/24/17 10:32 Pulse Rate 66 02/24/17 10:32 Respiratory Rate 18 02/24/17 10:32 Blood Pressure 168/78 02/24/17 10:32 O2 Sat by Pulse Oximetry 99 02/24/17 10:32 Temperature 97.7 F 02/24/17 10:32 Pulse Rate 59 02/24/17 16:05 Respiratory Rate 22 02/24/17 15:08 Blood Pressure 173/77 02/24/17 16:05 O2 Sat by Pulse Oximetry 93 02/24/17 16:41 Oxygen Delivery Oxygen Delivery Room Air Back Pain/Injury - Lab Data Result diagrams: 02/24/17 15:48 02/24/17 15:48 Lab Results 02/24/17 Range/Units 12:43 POC Glucose 147 H (58-89)
[2017-02-24] MEDS ORDERED: Ondansetron 4 MG/2 ML VIAL IVP ONE ×2 (12:58→15:27)
[2017-02-24] MEDS ORDERED: *HR* OxyCODONE/APAP 5/325 TABLET PO ONE (14:27)
[2017-02-24] MEDS ORDERED: *HR* Morphine 2 MG/ML SYRINGE IVP PRN (15:33)
[2017-02-24] MEDS ORDERED: Naloxone 0.4 MG/ML INJ IVP PRN (15:33)
[2017-02-24] MEDS ORDERED: Ondansetron 4 MG/2 ML VIAL IVP PRN (15:33)
[2017-02-24] MEDS ORDERED: D5% in Water 1,000 ML IVC PRN (15:43)
[2017-02-24] MEDS ORDERED: *HR* Dextrose 50 % in Water (Syg) 50 ML SYRINGE IVP PRN (15:43)
[2017-02-24] MEDS ORDERED: Dextrose Gel 15 GM PO PRN ×2 (15:43)
--- NOTE | 2017-02-24 15:48 | Internal Med History&Physical ---
Date of Encounter: 02/24/17 Time of Encounter: 15:00 Assessment and Plan (1) CAD (coronary artery disease) Current visit: Yes Status: Acute No chest pain, cont home med. Qualifiers: Coronary Disease-Associated Artery/Lesion type: bypass graft [place] vs. transplanted heart: [place] heart Associated angina: without angina Qualified Code(s): I25.810 - Atherosclerosis of coronary artery bypass graft(s) without angina pectoris (2) DM type 2 (diabetes mellitus, type 2) Current visit: No Status: Chronic Cont basal and sliding scale insulin. Qualifiers: Diabetes mellitus complication status: without complication Diabetes mellitus oil heaterman insulin use: with oil heaterman use Qualified Code(s): E11.9 - Type 2 diabetes mellitus without complications; Z79.4 - terminal operations supervisor (current) use of insulin (3) Chronic lower back pain Current visit: No Status: Chronic Pt has chronic low back pain. Worsen for 2-3 days. No alarm signs, more like skeletomuscular pain. - Pain medication with po narco, morphine for breakthough. Lidocaine patch. - PT/OT evaluation. - Pain management consult if symptoms persist or getting worse. Qualifiers: Back pain laterality: right Sciatica presence: without sciatica Qualified Code(s): M54.5 - Low back pain; G89.29 - Other chronic pain (4) History of pulmonary embolus (PE) Current visit: No Status: Chronic Pt is on xarelto (5) DVT prophylaxis Current visit: Yes Status: Acute On xarelto Internal Medicine - H&P: HPI Chief complaint: Back/right buttock pain Admitted From: Home Plans for Post Hospital Care: Transfer Inp Rehab Fac History of present illness: Ms. Velasco is a 86 year old female with history of diabetes, hypertension, CAD S /P CABG, DVT on xarelto, chronic low back pain present to ER for worsening low back and right buttock pain. Patient had epidural injection by pain specialist 8 days ago. Patient said the injection did help with the pain. However, 2-3 days ago, patient has worsening pain, mainly on the right buttock area. Patient denies injury. Patient denies loss control of urine or bowel movement. Patient denies numbness or tingling on both legs. Her sensation is generally intact bilaterally. Patient denies fever. In emergency room, CT lumbar spine has been done, no acute founding. However, patient lives alone and has difficulty to take care for herself. Patient also needed pain medication to control the pain. She was admitted for pain control, physical therapy, and the placement if necessary. I have discussed the CODE STATUS with patient. She is full code. Past Med Surg Social Fam HX - Past Medical History Medical history: arthritis, atrial fibrillation, coronary artery disease, DVT, diabetes, hyperlipidemia, hypertension, myocardial infarction, pulmonary embolus , renal disease, other Psychiatric history: anxiety - Past Surgical History Surgical History: appendectomy, cataract, cholecystectomy, coronary bypass (CABG ) - Social History Smoking Status: Never smoker Smokeless Tobacco Status: No Alcohol use: none Drug use: none - Family History Daughter Adopted: No Family Member Ethnicity: Non- Living Status: Still Living Hx Family Cardiac Disorders: Yes Hx Family Respiratory Disorders: No Hx Family Cancer: No Hx Family GI Disorders: No Hx Family Endocrine Disorder: No Internal Medicine - H&P: Meds Aspirin 81 mg PO DAILY 11/06/15 [History] Insulin ASPART [NovoLOG] 4 - 10 unit SQ TIDWM PRN 11/06/15 [History] Insulin DETEMIR [Levemir] 12 unit SQ QAM 11/06/15 [History] Simvastatin [Zocor] 10 mg PO DAILY 11/06/15 [History] Gabapentin [Neurontin] 100 mg PO TID PRN 11/28/15 [History] amLODIPine [Norvasc] 5 mg PO BID #60 tablet 07/06/16 [Rx] Lisinopril [Zestril] 40 mg PO DAILY 11/05/16 [History] hydroCHLOROthiazide [Hydrochlorothiazide] 12.5 mg PO DAILY 11/05/16 [History] Lidocaine Patch [Lidoderm 5% patch] 1 patch TP DAILY PRN 12/01/16 [History] Methyl Salicylate/Menthol [Bengay] 1 appl TP BID PRN 12/01/16 [History] Metoprolol [Lopressor] 12.5 mg PO BID 12/01/16 [History] Docusate [Colace] 100 mg PO BID #20 capsule 01/03/17 [Rx] Baclofen 20 mg PO TID 02/24/17 [History] Buspirone HCl [Buspar] 5 mg PO BID 02/24/17 [History] HYDROcodone/Acet 5/325 mg [[place] 5-325 mg] 1 tab PO Q6H PRN 02/24/17 [History] Polyethylene Glycol 3350 [MiraLAX Powder Bulk 17.9 Oz] 17 gm PO DAILY 02/24/17 [ History] Rivaroxaban [Xarelto] 15 mg PO DAILY 02/24/17 [History] 3 Allergy/AdvReac Type Severity Reaction Status Date / Time Penicillins [PCN] Allergy Rash Verified 02/24/17 10:36 Hydromorphone [From Dilaudid] AdvReac Gastrointestinal Verified 02/24/17 10:36 Upset All Systems PM: A 10-system review of systems was performed and is negative for pertinent findings except as documented above in the HPI. - Constitutional Vitals: Temp Pulse Resp BP Pulse Ox 97.7 F 87 22 153/97 96 02/24/17 10:32 02/24/17 14:22 02/24/17 15:08 02/24/17 15:08 02/24/17 14:22 General appearance: Present: A&O X 3, answers questions appropriately - Head Head exam: Present: atraumatic, normocephalic - Eye Eye exam: Present: PERRL, conjuntiva pink, sclera anicteric Pupils: Present: PERRL - Neck Neck exam general surgery: Present: supple, trachea midline. Absent: lymphadenopathy - Respiratory Respiratory exam: Present: CTAB. Absent: accessory muscle use, rales, rhonchi, wheezes - Cardiovascular Cardiovascular exam: Present: RRR, +S1, +S2. Absent: diastolic murmur, gallop, rubs, systolic murmur - GI/Abdominal GI/Abdominal exam: Present: normal bowel sounds, soft, no peritoneal signs. Absent: distended, tenderness - Extremities Exam Extremities exam: Present: tenderness, warm, radial pulses palpable and symmetrical. Absent: calf tenderness, cyanotic, pedal edema Additional comments: Tenderness on the right buttock, around SI joint area. - Neurological Exam Neurological exam: Present: CN II-XII intact, oriented X3, no focal deficits. Absent: pronater drift, facial droop, speech deficit - Skin Skin exam: Present: dry, intact Internal Med - H&P Results - Labs CBC & Chem 7: 02/24/17 15:48 02/24/17 15:48
[2017-02-24 15:55] LABS: Basophils % 0.5 %; Eosinophils # 0.2 K/mcL (0.0-0.6); Eosinophils % 2.9 %; Hematocrit 39.6 % (35.3-44.9); Hemoglobin 12.3 g/dL (11.5-15.4); Immature Granulocytes % 0.8 % (0-4); Immature Platelets 3.7 % (1.1-6.1); Lymphocytes # 2.2 K/mcL (0.6-4.6); Lymphocytes % 27.7 %; Mean Corpuscular HGB Conc 31.1 g/dL (31.6-35.5); Mean Corpuscular Hemoglobin 30.1 pg (28.0-33.3); Mean Corpuscular Volume 97.1 fL (83.0-100.0); Mean Platelet Volume 10.9 fL (9.4-12.4); Monocytes # 0.8 K/mcL (0.0-1.3); Monocytes % 9.5 %; Neutrophils # 4.7 K/mcL (1.6-8.9); Platelet Count 295 K/mcL (140-400); Red Blood Count 4.08 M/mcL (3.82-4.97); Red Cell Distribution Width 16.5 % (11.5-14.5); Segmented Neutrophils % 58.6 %
[2017-02-24 16:07] LABS: Calcium 8.8 mg/dL (8.6-10.8); Potassium 4.1 mEq/L (3.5-4.5)
[2017-02-24] MEDS ORDERED: Gabapentin 100 MG CAPSULE PO PRN (16:32)
[2017-02-24] MEDS: Insulin LISPRO 300 UNITS/3 ML VIAL SQ SCH ×2 (17:49→21:40)
[2017-02-24] MEDS: *HR* Rivaroxaban 15 MG TABLET PO SCH (18:55)
[2017-02-24] MEDS: Baclofen 10 MG TABLET PO SCH (21:35)
[2017-02-24] MEDS: amLODIPine 5 MG TABLET PO SCH (21:35)
[2017-02-25] MEDS: *HR* HYDROcodone/Acet 5/325 mg TABLET PO PRN ×2 (00:39→08:44)
[2017-02-25 07:43] LABS: Basophils % 0.5 %; Eosinophils # 0.3 K/mcL (0.0-0.6); Eosinophils % 3.2 %; Hemoglobin 11.5 g/dL (11.5-15.4); Immature Granulocytes % 0.5 % (0-4); Lymphocytes # 2.1 K/mcL (0.6-4.6); Lymphocytes % 26.4 %; Mean Corpuscular HGB Conc 30.3 g/dL (31.6-35.5); Mean Corpuscular Hemoglobin 29.5 pg (28.0-33.3); Mean Corpuscular Volume 97.4 fL (83.0-100.0); Mean Platelet Volume 11.6 fL (9.4-12.4); Monocytes # 0.9 K/mcL (0.0-1.3); Monocytes % 10.9 %; Neutrophils # 4.7 K/mcL (1.6-8.9); Platelet Count 287 K/mcL (140-400); Red Cell Distribution Width 16.5 % (11.5-14.5); Segmented Neutrophils % 58.5 %
[2017-02-25 07:44] LABS: Calcium 8.6 mg/dL (8.6-10.8); Potassium 4.6 mEq/L (3.5-4.5)
[2017-02-25] MEDS: amLODIPine 5 MG TABLET PO SCH ×2 (08:33→22:13)
[2017-02-25] MEDS: hydroCHLOROthiazide 25 MG TABLET PO SCH (08:33)
[2017-02-25] MEDS: Lisinopril 20 MG TABLET PO SCH (08:40)
[2017-02-25] MEDS: Insulin LISPRO 300 UNITS/3 ML VIAL SQ SCH ×4 (08:42→21:53)
[2017-02-25] MEDS: Baclofen 10 MG TABLET PO SCH ×2 (08:42→15:08)
[2017-02-25] MEDS: Aspirin 81 MG TAB.CHEW PO SCH (08:42)
[2017-02-25] MEDS: Insulin DETEMIR 100 UNIT/ML X5UNITS SQ SCH (08:43)
--- NOTE | 2017-02-25 10:17 | Internal Med Progress Note ---
Date of Encounter: 02/25/17 Time of Encounter: 10:15 - Assessment and plan (1) Chronic lower back pain Current Visit: No Status: Chronic Assessment and plan: will continue supportive care pain control PT/OT eval if pain worsens, will consider spinal surgery evaluation social media developer consultation for possible ECF placement Qualifiers: Back pain laterality: right Sciatica presence: without sciatica Qualified Code(s): M54.5 - Low back pain; G89.29 - Other chronic pain (2) CAD (coronary artery disease) Current Visit: Yes Status: Acute Assessment and plan: no signs of angina present at this time continue home medications Qualifiers: Coronary Disease-Associated Artery/Lesion type: bypass graft [place] vs. transplanted heart: [place] heart Associated angina: without angina Qualified Code(s): I25.810 - Atherosclerosis of coronary artery bypass graft(s) without angina pectoris (3) CKD (chronic kidney disease) stage 3, GFR 30-59 ml/min Current Visit: No Status: Chronic Assessment and plan: renal function at baseline continue to monitor (4) DM type 2 (diabetes mellitus, type 2) Current Visit: No Status: Chronic Assessment and plan: continue home insulin therapy ss insulin algorithm as needed monitor FS and BG ADA diet Qualifiers: Diabetes mellitus complication status: without complication Diabetes mellitus terminal clerk insulin use: with terminal clerk use Qualified Code(s): E11.9 - Type 2 diabetes mellitus without complications; Z79.4 - manager intermediate (current) use of insulin (5) DVT prophylaxis Current Visit: Yes Status: Acute Assessment and plan: anticoagulated with Xarelto (6) History of pulmonary embolus (PE) Current Visit: No Status: Chronic Assessment and plan: continue Xarelto (7) Hypertension Current Visit: No Status: Chronic Assessment and plan: BP within acceptable range continue home meds continue to monitor BP Qualifiers: Hypertension type: essential hypertension Qualified Code(s): I10 - Essential (primary) hypertension - Subjective Interval history: Patient seen and examined at bedside. Resting in bed and states is adequately controlled at this time. Reports of living alone but has been having difficulty ambulating and taking care of herself. Will obtain PT/Ot evaluation, given current condition, it is unsafe for patient to be discharged to home alone, she will likely benefit from ECF. - Constitutional Vitals: Temp Pulse Resp BP Pulse Ox 98.1 F 68 18 145/66 95 08/20/17 07:10 02/25/17 07:10 02/25/17 07:10 02/25/17 07:10 02/25/17 08:18 General appearance: Present: cooperative, A&O X 3 (hard of hearing), no acute distress, answers questions appropriately - Head Head exam: Present: atraumatic, normocephalic - Eye Eye exam: Present: conjuntiva pink, sclera anicteric - Respiratory Respiratory exam: Absent: respiratory distress, wheezes - Cardiovascular Cardiovascular exam: Present: RRR, +S1, +S2. Absent: diastolic murmur, gallop, rubs, systolic murmur - GI/Abdominal GI/Abdominal exam: Present: normal bowel sounds, soft, no peritoneal signs. Absent: distended, tenderness - Extremities Exam Extremities exam: Present: warm, radial pulses palpable and symmetrical. Absent : calf tenderness - Neurological Exam Neurological exam: Present: alert, oriented X3 - Psychiatric Psychiatric exam: Present: normal affect, normal mood Internal Medicine: Result - Labs CBC & Chem 7: 02/25/17 06:26 02/25/17 06:26 Labs: Short CBC 02/24/17 02/25/17 Range/Units 15:48 06:26 WBC 8.0 8.0 (4.3-11.1) K/mcL Hgb 12.3 11.5 (11.5-15.4) g/dL Hct 39.6 38.0 (35.3-44.9) % Plt Count 295 287 (140-400) K/mcL Neutrophils # 4.7 4.7 (1.6-8.9) K/mcL BMP 02/24/17 02/25/17 15:48 06:26 Sodium 141 141 Potassium 4.1 4.6 H Chloride 106 106 Carbon Dioxide 28 29 BUN 23 H 23 H Creatinine 1.06 1.11 Glucose 176 H 148 H Calcium 8.8 8.6 Consult Discharge Plan - Plan Referrals: Vic Glasgow MD [Primary Care Provider] -
[2017-02-25] MEDS: *HR* Rivaroxaban 15 MG TABLET PO SCH (16:45)
--- NOTE | 2017-02-26 05:08 | Event Note ---
Date of Encounter: 02/26/17 Time of Encounter: 05:04 Called to see patient by RN for concerns of unresponsiveness. I requested accucheck and ABG. Upon my assessment, patient sleeping, responds to pain and loud stimuli. She pushed me away purposely with both hands as I tried to perform sternal rub, open her eyelids, and shine a light in her pupils. I canceled ABG. Glucose is 317. I reviewed her sedating meds. She received high dose Baclofen yesterday/last night, morphine last night, Neurontin, among other sedating meds. Baclofen has been stopped. I asked RN to minimize sedating meds and to monitor patient. Further medication changes per primary team.
[2017-02-26 06:06] LABS: Calcium 9.2 mg/dL (8.6-10.8); Magnesium 1.8 mg/dL (1.6-2.6); Potassium 4.6 mEq/L (3.5-4.5)
[2017-02-26 06:47] LABS: Basophils % 0.2 %; Eosinophils % 0.1 %; Hematocrit 43.3 % (35.3-44.9); Immature Granulocytes % 0.9 % (0-4); Immature Platelets 4.6 % (1.1-6.1); Lymphocytes # 0.8 K/mcL (0.6-4.6); Lymphocytes % 4.4 %; Mean Corpuscular Hemoglobin 30.6 pg (28.0-33.3); Mean Corpuscular Volume 92.7 fL (83.0-100.0); Mean Platelet Volume 11.3 fL (9.4-12.4); Monocytes # 1.2 K/mcL (0.0-1.3); Monocytes % 6.7 %; Platelet Count 325 K/mcL (140-400); Red Blood Count 4.67 M/mcL (3.82-4.97); Segmented Neutrophils % 87.7 %
[2017-02-26 06:53] LABS: Hemoglobin 14.3 g/dL (11.5-15.4); Neutrophils # 16.2 K/mcL (1.6-8.9)
[2017-02-26] MEDS: Insulin LISPRO 300 UNITS/3 ML VIAL SQ SCH ×4 (08:58→23:42)
[2017-02-26] MEDS: hydroCHLOROthiazide 25 MG TABLET PO SCH (09:04)
[2017-02-26] MEDS: Aspirin 81 MG TAB.CHEW PO SCH (09:04)
[2017-02-26] MEDS: Lisinopril 20 MG TABLET PO SCH (09:05)
[2017-02-26] MEDS: amLODIPine 5 MG TABLET PO SCH ×2 (09:05→20:56)
[2017-02-26] MEDS: Insulin DETEMIR 100 UNIT/ML X5UNITS SQ SCH (09:25)
--- NOTE | 2017-02-26 11:47 | Internal Med Progress Note ---
Date of Encounter: 02/26/17 Time of Encounter: 11:41 - Assessment and plan (1) HCAP (healthcare-associated pneumonia) Current Visit: Yes Status: Acute Assessment and plan: CXR concerning for PNA, given patient's recent hospitalization, will treat as HCAP continue empiric IV abx (Vancomycin and Levaquin) Dosed abx as per renal function IV fluids f/u blood cultures will continue to closely monitor f/u ABG given current mental status (2) UTI (urinary tract infection) Current Visit: Yes Status: Acute Assessment and plan: UA concerning for UTI will continue empiric IV abx f/u urine cultures Qualifiers: Urinary tract infection type: site unspecified Hematuria presence: without hematuria Qualified Code(s): N39.0 - Urinary tract infection, site not specified (3) CKD (chronic kidney disease) stage 3, GFR 30-59 ml/min Current Visit: No Status: Chronic Assessment and plan: Acute on chronic kidney injury likely secondary to underlying infection and uncontrolled hypertension will hold Lisinopril, HCTZ at this time avoid all nephrotoxic agents at this time renally dosing abx aggressive BP control will continue to closely monitor (4) Chronic lower back pain Current Visit: No Status: Chronic Assessment and plan: will continue supportive care pain control PT/OT eval when able Qualifiers: Back pain laterality: right Sciatica presence: without sciatica Qualified Code(s): M54.5 - Low back pain; G89.29 - Other chronic pain (5) CAD (coronary artery disease) Current Visit: Yes Status: Acute Assessment and plan: no signs of angina present at this time continue home medications Qualifiers: Coronary Disease-Associated Artery/Lesion type: bypass graft [place] vs. transplanted heart: [place] heart Associated angina: without angina Qualified Code(s): I25.810 - Atherosclerosis of coronary artery bypass graft(s) without angina pectoris (6) DM type 2 (diabetes mellitus, type 2) Current Visit: No Status: Chronic Assessment and plan: continue home insulin therapy noted to require additional 24units of insulin therapy in the last 24 hours in addition to her basal insulin coverage adjusted Levemir as per her insulin requirements ss insulin algorithm as needed monitor FS and BG ADA diet Qualifiers: Diabetes mellitus complication status: without complication Diabetes mellitus long term care pharmacist insulin use: with detention use Qualified Code(s): E11.9 - Type 2 diabetes mellitus without complications; Z79.4 - MCFP (current) use of insulin (7) DVT prophylaxis Current Visit: Yes Status: Acute Assessment and plan: anticoagulated with Xarelto (8) History of pulmonary embolus (PE) Current Visit: No Status: Chronic (9) Hypertension Current Visit: No Status: Chronic Assessment and plan: BP within acceptable range at this itme continue IV BB and IV hydralazine while patient is refusing to take PO medications continue to monitor BP Qualifiers: Hypertension type: essential hypertension Qualified Code(s): I10 - Essential (primary) hypertension - Subjective Interval history: Patient seen and examined with daughter in law present at bedside. patient was found to be unresponsive overnight and was awoken with sternal rub. She presented the same way during my evaluation. As per nursing report, initial when patient was admitted, patient and family was concerned about her observation status and stated that the patient would like to take her own medication so that they don't have to pay for the medications while she is hospitalized. I had a detailed discussion with the family and informed them that patient has to take the medications that are prescribed to her during this hospitalization. Patient has been noted to refusing PO meds and was found to be hypertensive. She is also noted to have worsening leukocytosis due to which a XRAY, UA, blood cultures, and urine culture were obtained. CXR and UA are concerning for PNA and UTI. She will be started on empiric IV abx. She is receiving IV medications for her BP at this time. All of her narcotic meds, all sedative agents are placed on hold at this time. - Constitutional Vitals: Temp Pulse Resp BP Pulse Ox 99.1 F 94 18 176/78 95 02/26/17 07:30 02/26/17 07:30 02/26/17 07:30 02/26/17 07:30 02/26/17 09:29 General appearance: Present: A&O X 0, no acute distress, answers questions appropriately - Head Head exam: Present: atraumatic, normocephalic - Eye Eye exam: Present: conjuntiva pink, sclera anicteric - Respiratory Respiratory exam: Absent: respiratory distress, wheezes - Cardiovascular Cardiovascular exam: Present: RRR, +S1, +S2. Absent: diastolic murmur, gallop, rubs, systolic murmur - GI/Abdominal GI/Abdominal exam: Present: normal bowel sounds, soft, no peritoneal signs. Absent: distended, tenderness - Extremities Exam Extremities exam: Present: warm, radial pulses palpable and symmetrical. Absent : calf tenderness, cyanotic, pedal edema Internal Medicine: Result - Labs CBC & Chem 7: 02/26/17 06:33 02/26/17 05:31 Labs: Short CBC 02/26/17 Range/Units 06:33 WBC 18.5 H D (4.3-11.1) K/mcL Hgb 14.3 D (11.5-15.4) g/dL Hct 43.3 (35.3-44.9) % Plt Count 325 (140-400) K/mcL Neutrophils # 16.2 H (1.6-8.9) K/mcL BMP 02/26/17 05:31 Sodium 134 L Potassium 4.6 H Chloride 98 Carbon Dioxide 23 BUN 28 H Creatinine 1.80 H D Glucose 347 H Calcium 9.2 - Impressions Impressions Chest X-Ray 02/26/17 07:48 IMPRESSION: Limited, low lung volume study. Basilar opacities are likely atelectasis. Pneumonia is a differential consideration. Chronic elevation of the right hemidiaphragm. D/ / Humphrey Andres MD / Humphrey Andres MD Interpreting Provider: Humphrey Andres MD Consult Discharge Plan - Plan Referrals: Vic Glasgow MD [Primary Care Provider] -
[2017-02-26] MEDS ORDERED: Vancomycin 1,000 MG in D5% in Water 250 ML IVPB ONE (12:21)
[2017-02-26 12:28] LABS: Bilirubin,Urine Negative (Negative); Blood,Urine Large (Negative); Clarity,Urine Cloudy (Clear); Color,Urine Red (Yellow); Glucose,Urine (UA) 100 mg/dL (Normal); Ketones,Urine Trace mg/dL (Negative); Leukocyte Esterase,Urine Small (Negative); Nitrite,Urine Negative (Negative); PH,Urine 6.5 pH Units (5.0-8.0); Protein,Urine 100 mg/dL (Neg-Trace); Specific Gravity,Urine 1.016 (1.010-1.025); Urobilinogen,Urine Normal (Normal)
[2017-02-26 12:30] LABS: Bacteria,Urine None Seen per hpf (None-Few); Hyaline Casts,Urine None Seen per lpf (None-Few); RBC,Urine TNTC per hpf (0-3); Squamous Epithelial Cell,Urine Moderate per lpf (None-Few)
[2017-02-26] MEDS ORDERED: Insulin DETEMIR 100 UNIT/ML X5UNITS SQ ONE (12:35)
[2017-02-26] MEDS: *HR* Metoprolol 5 MG/5 ML VIAL IVP SCH ×2 (12:53→20:55)
[2017-02-26] MEDS ORDERED: Vancomycin 1 EACH in D5% in Water (Mini-Bag+) 100 ML IVPB SCH (13:00)
[2017-02-26] MEDS ORDERED: Piperacillin/Tazobactam 3.375 GM in D5% in Water (Mini-Bag+) 100 ML IVPB SCH (13:00)
[2017-02-26 14:21] LABS: ABG Base Excess 0.9 mEq/L (-2.0 to 3.0); ABG Oxygen Saturation 100 % (95-98); ABG PCO2 33 mmHg (35-45); ABG PH 7.47 pH Units (7.32-7.45); ABG PO2 153 mmHg (85-104)
[2017-02-26] MEDS: Levofloxacin 500 MG/100 ML 500 MG/100 ML BAG IVPB SCH (15:07)
[2017-02-26] MEDS: 0.9 % Sodium Chloride 1,000 ML IVC SCH (15:10)
[2017-02-26] MEDS: *HR* Rivaroxaban 15 MG TABLET PO SCH (18:31)
[2017-02-26] MEDS: Acetaminophen 325 MG TABLET PO PRN (20:56)
[2017-02-27] MEDS: *HR* Metoprolol 5 MG/5 ML VIAL IVP SCH ×4 (00:08→18:36)
[2017-02-27] MEDS: Acetaminophen 325 MG TABLET PO PRN ×2 (03:43→10:23)
[2017-02-27] MEDS: 0.9 % Sodium Chloride 1,000 ML IVC SCH ×2 (06:04→13:38)
[2017-02-27 06:24] LABS: Basophils % 0.3 %; Eosinophils # 0.1 K/mcL (0.0-0.6); Eosinophils % 0.5 %; Immature Granulocytes % 0.4 % (0-4); Lymphocytes # 1.6 K/mcL (0.6-4.6); Lymphocytes % 13.7 %; Mean Corpuscular HGB Conc 32.1 g/dL (31.6-35.5); Mean Corpuscular Hemoglobin 30.8 pg (28.0-33.3); Mean Platelet Volume 11.9 fL (9.4-12.4); Monocytes # 1.1 K/mcL (0.0-1.3); Monocytes % 8.8 %; Neutrophils # 9.1 K/mcL (1.6-8.9); Platelet Count 208 K/mcL (140-400); Red Blood Count 3.96 M/mcL (3.82-4.97); Red Cell Distribution Width 17.2 % (11.5-14.5); Segmented Neutrophils % 76.3 %
[2017-02-27 06:38] LABS: Calcium 8.4 mg/dL (8.6-10.8); Magnesium 1.8 mg/dL (1.6-2.6); Phosphorous 4.8 mg/dL (2.3-4.7); Potassium 4.6 mEq/L (3.5-4.5)
[2017-02-27 06:48] LABS: Hemoglobin 12.2 g/dL (11.5-15.4)
[2017-02-27 06:51] LABS: Platelet Clumps Few (Not Present)
[2017-02-27] MEDS: Insulin LISPRO 300 UNITS/3 ML VIAL SQ SCH ×4 (07:45→23:04)
[2017-02-27] MEDS: Aspirin 81 MG TAB.CHEW PO SCH (07:47)
[2017-02-27] MEDS: amLODIPine 5 MG TABLET PO SCH ×2 (07:48→23:01)
[2017-02-27] MEDS: Insulin DETEMIR 100 UNIT/ML X5UNITS SQ SCH (08:24)
[2017-02-27] MEDS ORDERED: Aminoglycoside Consult 1 EACH MC ONE (09:11)
--- NOTE | 2017-02-27 13:22 | Nephrology Consult Note ---
Date of Encounter: 02/27/17 Time of Encounter: 13:19 Assessment and Plan (1) Acute kidney failure, unspecified Current Visit: Yes Status: Acute Patient has a clinical picture of acute kidney injury occurring in the hospital. Exact etiology is unclear. Potential causes include vancomycin nephrotoxicity. In addition the patient's oral intake is seems to be low so she could have some volume depletion. She does have some low back issues so post renal obstruction needs to be ruled out. I am going to recommend placement of a Borrego catheter, renal ultrasound, and resume IV fluid administration. I would discontinue the vancomycin and avoid all nephrotoxins. She does exhibit acute mental status changes. Etiology is unclear. Qualifiers: Acute renal failure type: unspecified Qualified Code(s): N17.9 - Acute kidney failure, unspecified History of Present Illness - History of Present Illness This is an 86-year-old female who was admitted on February 24 with complaints of worsening back pain. Patient is disoriented and unable to provide any medical history. Apparently she had an epidural injection about 8 days prior to admission. On admission her serum creatinine was 1.06. During her hospital stay she has had a gradually worsening creatinine and currently up to a level of 2.27. Apparently she has been given some IV fluids without any improvement. Review of the medical record indicates patient has not had any obvious hypotensive or hemodynamic insults. She has been empirically placed on vancomycin. Looks as though her oral intake has been poor. Past Med Surg Social Fam HX - Past Medical History Medical history: arthritis, atrial fibrillation, coronary artery disease, DVT, diabetes, hyperlipidemia, hypertension, myocardial infarction, pulmonary embolus , renal disease, other Psychiatric history: anxiety - Past Surgical History Surgical History: appendectomy, cataract, cholecystectomy, coronary bypass (CABG ) - Social History Smoking Status: Never smoker Smokeless Tobacco Status: No Alcohol use: none Drug use: none - Family History Daughter Adopted: No Family Member Ethnicity: Non- Living Status: Still Living Hx Family Cardiac Disorders: Yes Hx Family Respiratory Disorders: No Hx Family Cancer: No Hx Family GI Disorders: No Hx Family Endocrine Disorder: No Medications and Allergies Aspirin 81 mg PO DAILY 11/06/15 [History] Insulin ASPART [NovoLOG] 4 - 10 unit SQ TIDWM PRN 11/06/15 [History] Insulin DETEMIR [Levemir] 12 unit SQ QAM 11/06/15 [History] Simvastatin [Zocor] 10 mg PO DAILY 11/06/15 [History] Gabapentin [Neurontin] 100 mg PO TID PRN 11/28/15 [History] amLODIPine [Norvasc] 5 mg PO BID #60 tablet 07/06/16 [Rx] Lisinopril [Zestril] 40 mg PO DAILY 11/05/16 [History] hydroCHLOROthiazide [Hydrochlorothiazide] 12.5 mg PO DAILY 11/05/16 [History] Lidocaine Patch [Lidoderm 5% patch] 1 patch TP DAILY PRN 12/01/16 [History] Methyl Salicylate/Menthol [Bengay] 1 appl TP BID PRN 12/01/16 [History] Metoprolol [Lopressor] 12.5 mg PO BID 12/01/16 [History] Docusate [Colace] 100 mg PO BID #20 capsule 01/03/17 [Rx] Buspirone HCl [Buspar] 5 mg PO BID 02/24/17 [History] HYDROcodone/Acet 5/325 mg [Covert 5-325 mg] 1 tab PO Q6H PRN 02/24/17 [History] Polyethylene Glycol 3350 [MiraLAX Powder Bulk 17.9 Oz] 17 gm PO DAILY 02/24/17 [ History] Rivaroxaban [Xarelto] 15 mg PO DAILY 02/24/17 [History] 3 Allergy/AdvReac Type Severity Reaction Status Date / Time Penicillins [PCN] Allergy Rash Verified 02/24/17 10:36 Hydromorphone [From Dilaudid] AdvReac Gastrointestinal Verified 02/24/17 10:36 Upset Review of Systems ROS unobtainable: due to mental status Exam - Vital Signs Vital signs: Initial Vital Signs Temp Pulse Resp BP Pulse Ox 97.7 F 66 18 168/78 99 02/24/17 10:32 02/24/17 10:32 02/24/17 10:32 02/24/17 10:32 02/24/17 10:32 Vital Signs - Last 8 Hours Temp Pulse Resp BP Pulse Ox 02/27/17 07:52 98.8 F 75 18 145/79 96 Intake and Output 02/26/17 02/27/17 02/27/17 23:59 07:59 15:59 Intake Total 410 / 410 1180 / 1180 762 / 762 Output Total 0 / 0 0 / 0 200 / 200 Balance 410 / 410 1180 / 1180 562 / 562 Intake: IV Fluids 350 / 350 1180 / 1180 162 / 162 0.9 % Sodium Chloride 1, 1180 / 1180 162 / 162 000 ML @ 100 mls/hr IVC . Q10H [facility] Rx#:[id number] Levaquin Premix 500mg/ 100 / 100 100mL 500 mg In 100 ml @ 100 mls/hr IVPB Q48H [facility] Rx#:[id number] Vancocin 1,000 MG In 250 / 250 Dextrose 5% 250 ML @ 167 mls/hr IVPB ONCE ONE Rx#: [id number] Oral 60 / 60 0 / 0 600 / 600 Output: Urine 0 / 0 Catheter 0 / 0 200 / 200 Other: Meal Dinner Breakfast Percent of Meal Consumed 0% 90% Weight 80.8 kg Blood Glucose* 220 153 Patient Weight 02/27/17 23:59 Weight 80.8 kg - General Appearance Exam: Patient is awake. She is obviously disoriented and talking nonsensical. She will not answer questions. She will not follow simple commands such as a hand grasp. Blood pressure is 145/79. Temperature is 98.8. Lungs clear to auscultation anteriorly. Heart regular rate and rhythm. Abdomen shows normal bowel sounds. There is no guarding tenderness or rigidity. There is no lower extremity swelling. Results - Lab Results 02/27/17 05:14 02/27/17 05:14 Most recent lab results ABG pH 7.47 pH Units (7.32-7.45) H 02/26/17 14:14 ABG pCO2 33 mmHg (35-45) L 02/26/17 14:14 ABG pO2 153 mmHg (85-104) H 02/26/17 14:14 ABG HCO3 24.0 mEQ/L (21-27) 02/26/17 14:14 ABG O2 Saturation 100 % (95-98) H 02/26/17 14:14 Calcium 8.4 mg/dL (8.6-10.8) L 02/27/17 05:14 Phosphorus 4.8 mg/dL (2.3-4.7) H 02/27/17 05:14 Magnesium 1.8 mg/dL (1.6-2.6) 02/27/17 05:14 Consult Discharge Plan - Plan Referrals: Vic Glasgow MD [Primary Care Provider] -
[2017-02-27] MEDS ORDERED: Vancomycin 1,250 MG in D5% in Water 250 ML IVPB ONE (14:00)
--- NOTE | 2017-02-27 16:16 | Internal Med Progress Note ---
Date of Encounter: 02/27/17 Time of Encounter: 10:45 - Assessment and plan (1) HCAP (healthcare-associated pneumonia) Current Visit: Yes Status: Acute Assessment and plan: Suspected healthcare associated pneumonia involving bilateral lower lobes. WBC count is improving. On IV antibiotics. Cultures are (2) Acute metabolic encephalopathy Current Visit: Yes Status: Acute Assessment and plan: Patient is confused. Uncertain etiology. Could be due to pneumonia or metabolic causes including acute kidney injury. We will get CT scan of the head. Monitor neuro status. Fall precautions. High risk for complications (3) Acute kidney failure, unspecified Current Visit: Yes Status: Suspected Assessment and plan: Patient with acute kidney injury on chronic kidney disease. Avoid nephrotoxic agents. Continue IV hydration. Monitor vital signs closely. Monitor urine output. Qualifiers: Acute renal failure type: with acute tubular necrosis Qualified Code(s): N17.0 - Acute kidney failure with tubular necrosis (4) CAD (coronary artery disease) Current Visit: Yes Status: Chronic Assessment and plan: Continue aspirin, statin and beta janes Qualifiers: Coronary Disease-Associated Artery/Lesion type: bypass graft [place] vs. transplanted heart: [place] heart Associated angina: without angina Qualified Code(s): I25.810 - Atherosclerosis of coronary artery bypass graft(s) without angina pectoris (5) Chronic lower back pain Current Visit: No Status: Chronic Assessment and plan: Supportive care. Physical therapy when patient is able to tolerate Qualifiers: Back pain laterality: right Sciatica presence: without sciatica Qualified Code(s): M54.5 - Low back pain; G89.29 - Other chronic pain (6) CKD (chronic kidney disease) stage 3, GFR 30-59 ml/min Current Visit: No Status: Chronic Assessment and plan: with acute worsening of renal function (7) History of pulmonary embolus (PE) Current Visit: Yes Status: Chronic Assessment and plan: On anticoagulation with xarelto. However given worsening renal function, we will change to Eliquis. (8) Hypertension Current Visit: Yes Status: Chronic Assessment and plan: Fairly controlled Qualifiers: Hypertension type: essential hypertension Qualified Code(s): I10 - Essential (primary) hypertension (9) UTI (urinary tract infection) Current Visit: Yes Status: Ruled-out Assessment and plan: Urine culture negative. Patient is receiving antibiotics for pneumonia. Urinary WBC most likely related to acute kidney injury. Qualifiers: Urinary tract infection type: site unspecified Hematuria presence: with hematuria Qualified Code(s): N39.0 - Urinary tract infection, site not specified; R31.9 - Hematuria, unspecified - Subjective Interval history: Patient is very confused this morning. Repeats the same words and not answering questions appropriately. Responds to some commands. Unclear how long she has been this way but yesterday she was very lethargic and required sternal rub to awake her. This morning she seems to be more responsive overall but very confused. No fever reported overnight. - Constitutional Vitals: Temp Pulse Resp BP Pulse Ox 97.6 F 88 16 139/78 95 02/27/17 15:15 02/27/17 15:15 02/27/17 15:15 02/27/17 15:15 02/27/17 15:15 General appearance: Present: A&O X 0, no acute distress, answers questions appropriately - Neck Neck exam general surgery: Present: supple, trachea midline. Absent: lymphadenopathy - Respiratory Respiratory exam: Present: CTAB. Absent: accessory muscle use, rales, rhonchi, wheezes - Cardiovascular Cardiovascular exam: Present: RRR, +S1, +S2. Absent: diastolic murmur, gallop, rubs, systolic murmur - GI/Abdominal GI/Abdominal exam: Present: normal bowel sounds, soft, no peritoneal signs. Absent: distended, tenderness - Extremities Exam Extremities exam: Present: warm, radial pulses palpable and symmetrical. Absent : calf tenderness, cyanotic, pedal edema - Skin Skin exam: Present: dry, intact Internal Medicine: Result - Labs CBC & Chem 7: 02/27/17 05:14 02/27/17 05:14 Labs: Short CBC 02/27/17 Range/Units 05:14 WBC 11.9 H (4.3-11.1) K/mcL Hgb 12.2 D (11.5-15.4) g/dL Hct 38.0 (35.3-44.9) % Plt Count 208 (140-400) K/mcL Neutrophils # 9.1 H (1.6-8.9) K/mcL BMP 02/27/17 05:14 Sodium 134 L Potassium 4.6 H Chloride 102 Carbon Dioxide 23 BUN 46 H D Creatinine 2.27 H Glucose 171 H Calcium 8.4 L - ABG Interpretation ABG results: ABG ABG pH 7.47 pH Units (7.32-7.45) H 02/26/17 14:14 ABG pCO2 33 mmHg (35-45) L 02/26/17 14:14 ABG pO2 153 mmHg (85-104) H 02/26/17 14:14 ABG O2 Saturation 100 % (95-98) H 02/26/17 14:14 - Impressions Impressions Head CT 02/27/17 11:03 IMPRESSION: No acute intracranial abnormality. Stable mild chronic small vessel white matter ischemic changes. D/ / Jarrod Buitrago MD / Jarrod Buitrago MD Interpreting Provider: Jarrod Buitrago MD Consult Discharge Plan - Plan Referrals: Vic Glasgow MD [Primary Care Provider] -
[2017-02-27] MEDS: APIXABAN 5 MG TABLET PO SCH (23:01)
[2017-02-28] MEDS: *HR* Metoprolol 5 MG/5 ML VIAL IVP SCH ×2 (01:01→06:38)
[2017-02-28] MEDS: 0.9 % Sodium Chloride 1,000 ML IVC SCH ×3 (01:02→22:26)
[2017-02-28 05:40] LABS: Basophils % 0.2 %; Eosinophils % 0.3 %; Hematocrit 37.7 % (35.3-44.9); Hemoglobin 12.3 g/dL (11.5-15.4); Immature Granulocytes % 0.6 % (0-4); Lymphocytes # 1.5 K/mcL (0.6-4.6); Mean Corpuscular HGB Conc 32.6 g/dL (31.6-35.5); Mean Corpuscular Hemoglobin 30.8 pg (28.0-33.3); Mean Corpuscular Volume 94.3 fL (83.0-100.0); Mean Platelet Volume 11.3 fL (9.4-12.4); Monocytes # 1.4 K/mcL (0.0-1.3); Monocytes % 10.8 %; Neutrophils # 9.6 K/mcL (1.6-8.9); Platelet Count 253 K/mcL (140-400); Red Cell Distribution Width 17.2 % (11.5-14.5); Segmented Neutrophils % 76.1 %
[2017-02-28 05:59] LABS: Albumin 2.4 g/dL (3.5-5.0); Albumin/Globulin Ratio 0.8 (1.1-2.2); Bilirubin,Total 0.6 mg/dL (0.2-1.2); Calcium 7.9 mg/dL (8.6-10.8); Globulin 3.1 g/dL (2.4-3.5); Potassium 4.3 mEq/L (3.5-4.5); Total Protein 5.5 g/dL (6.0-8.3)
[2017-02-28] MEDS: APIXABAN 5 MG TABLET PO SCH ×2 (07:35→22:20)
[2017-02-28] MEDS: Insulin LISPRO 300 UNITS/3 ML VIAL SQ SCH ×4 (07:36→22:28)
[2017-02-28] MEDS: Aspirin 81 MG TAB.CHEW PO SCH (07:36)
[2017-02-28] MEDS: amLODIPine 5 MG TABLET PO SCH ×2 (07:36→22:21)
--- NOTE | 2017-02-28 10:08 | Nephrology Progress Note ---
Date of Encounter: 02/28/17 Time of Encounter: 09:45 - Assessment and Plan (1) Acute kidney failure, unspecified Current Visit: Yes Status: Suspected SEUN in hospital setting, unclear etiology. Creat slowly improved 1.93. Renal US essentially unremarkable. Would continue IV fluids. Avoid nephrotoxins. Will continue to monitor. Qualifiers: Acute renal failure type: with acute tubular necrosis Qualified Code(s): N17.0 - Acute kidney failure with tubular necrosis Subjective Interval history: Sitting up in chair. Alert. Seems somewhat confused and [place]IS [place]. Nursing staff at bedside states todays mentation a vast improvement. Urine in griffiths bag tea color. Objective - Vital Signs Vital signs: Vital Signs Temp Pulse Resp BP Pulse Ox 02/28/17 07:27 98.5 F 88 16 132/87 98 02/28/17 03:43 98.2 F 83 16 121/75 96 02/28/17 00:22 97.6 F 93 17 132/81 96 02/27/17 18:37 99.0 F 98 18 127/78 97 02/27/17 15:15 97.6 F 88 16 139/78 95 02/27/17 13:56 90 153/82 02/27/17 13:41 98.5 F 93 17 170/89 97 Intake and Output 02/27/17 02/28/17 02/28/17 23:59 07:59 15:59 Intake Total 1000 / 1000 654 / 654 120 / 120 Output Total 250 / 250 150 / 150 Balance 750 / 750 504 / 504 120 / 120 Intake: IV Fluids 1000 / 1000 654 / 654 0.9 % Sodium Chloride 1, 1000 / 1000 654 / 654 000 ML @ 100 mls/hr IVC . Q10H [facility] Rx#:[id number] Oral 0 / 0 0 / 0 120 / 120 Output: Urine 0 / 0 Catheter 250 / 250 150 / 150 Other: Meal Breakfast Percent of Meal Consumed 0% Stool Size Moderate Large Stool Consistency liquid Stool Color Brown # Bowel Movement Diapers 1 1 Weight 81.1 kg Blood Glucose* 274 163 Patient Weight 02/28/17 23:59 Weight 81.1 kg - General Appearance General appearance: Present: well-developed, well-nourished, appears started age EENT: Present: mucous membranes moist Neck: Present: no JVD Respiratory: Present: clear Cardiology: Present: no edema, irregular rhythm Gastrointestinal: Present: normoactive bowel sounds, no tenderness Integumentary: Present: warm and dry Psychiatric: Present: mood/affect appropriate, cooperative - Lab 02/28/17 05:14 02/28/17 05:14 Most recent lab results ABG pH 7.47 pH Units (7.32-7.45) H 02/26/17 14:14 ABG pCO2 33 mmHg (35-45) L 02/26/17 14:14 ABG pO2 153 mmHg (85-104) H 02/26/17 14:14 ABG HCO3 24.0 mEQ/L (21-27) 02/26/17 14:14 ABG O2 Saturation 100 % (95-98) H 02/26/17 14:14 Calcium 7.9 mg/dL (8.6-10.8) L 02/28/17 05:14 Phosphorus 4.8 mg/dL (2.3-4.7) H 02/27/17 05:14 Magnesium 1.8 mg/dL (1.6-2.6) 02/27/17 05:14 Consult Discharge Plan - Plan Referrals: Vic Glasgow MD [Primary Care Provider] -
[2017-02-28] MEDS: Insulin DETEMIR 100 UNIT/ML X5UNITS SQ SCH ×2 (10:34→22:32)
[2017-02-28] MEDS: Levofloxacin 500 MG/100 ML 500 MG/100 ML BAG IVPB SCH (13:49)
--- NOTE | 2017-02-28 15:09 | Internal Med Progress Note ---
Date of Encounter: 02/28/17 Time of Encounter: 09:30 - Assessment and plan (1) HCAP (healthcare-associated pneumonia) Current Visit: Yes Status: Acute Assessment and plan: Blood cultures have been negative. Continue levofloxacin. WBC count at 12.6 today. No fever. We will continue Levaquin for now. Vancomycin has been held due to possible nephrotoxicity. (2) Acute metabolic encephalopathy Current Visit: Yes Status: Acute Assessment and plan: Improved today but not yet at baseline. Continues to repeat sentences but does answer questions appropriately. Continue to monitor for now. Most likely related to acute infection and pneumonia. (3) Acute kidney failure, unspecified Current Visit: Yes Status: Suspected Assessment and plan: Renal function appears to be stabilizing. Creatinine 1.93 today. We will continue to monitor renal function. Avoid nephrotoxic agents. Qualifiers: Acute renal failure type: with acute tubular necrosis Qualified Code(s): N17.0 - Acute kidney failure with tubular necrosis (4) CAD (coronary artery disease) Current Visit: Yes Status: Chronic Assessment and plan: No chest pain. Continue aspirin, beta janes and statin. Qualifiers: Coronary Disease-Associated Artery/Lesion type: bypass graft [place] vs. transplanted heart: [place] heart Associated angina: without angina Qualified Code(s): I25.810 - Atherosclerosis of coronary artery bypass graft(s) without angina pectoris (5) Chronic lower back pain Current Visit: No Status: Chronic Assessment and plan: Supportive care. Placement to skilled rehabilitation. Qualifiers: Back pain laterality: right Sciatica presence: without sciatica Qualified Code(s): M54.5 - Low back pain; G89.29 - Other chronic pain (6) CKD (chronic kidney disease) stage 3, GFR 30-59 ml/min Current Visit: No Status: Chronic Assessment and plan: with Acute worsening of renal function. (7) History of pulmonary embolus (PE) Current Visit: Yes Status: Chronic Assessment and plan: Currently on Eliquis. Changed from Xarelto to due to worsening renal function. (8) Hypertension Current Visit: Yes Status: Chronic Assessment and plan: Blood pressure is well controlled Qualifiers: Hypertension type: essential hypertension Qualified Code(s): I10 - Essential (primary) hypertension - Subjective Interval history: Patient is more awake and alert today. Less confused. Answers some questions appropriately. Denies any pain or any new complaints at this time. Does continue to repeat sentences and answers. knows she is at [facility]. - Constitutional Vitals: Temp Pulse Resp BP Pulse Ox 98.5 F 81 16 123/68 98 02/28/17 11:04 02/28/17 11:04 02/28/17 11:04 02/28/17 11:04 02/28/17 11:04 General appearance: Present: A&O X 1, no acute distress, answers questions appropriately (answers some questions appropriately.) - Neck Neck exam general surgery: Present: supple, trachea midline. Absent: lymphadenopathy - Respiratory Respiratory exam: Present: CTAB. Absent: accessory muscle use, rales, rhonchi, wheezes - Cardiovascular Cardiovascular exam: Present: RRR, +S1, +S2. Absent: diastolic murmur, gallop, rubs, systolic murmur - GI/Abdominal GI/Abdominal exam: Present: normal bowel sounds, soft, no peritoneal signs. Absent: distended, tenderness - Extremities Exam Extremities exam: Present: pedal edema, warm, radial pulses palpable and symmetrical. Absent: calf tenderness, cyanotic - Neurological Exam Neurological exam: Present: altered, no focal deficits. Absent: facial droop, speech deficit - Skin Skin exam: Present: dry, intact Internal Medicine: Result - Labs CBC & Chem 7: 02/28/17 05:14 02/28/17 05:14 Labs: Short CBC 02/28/17 Range/Units 05:14 WBC 12.6 H (4.3-11.1) K/mcL Hgb 12.3 (11.5-15.4) g/dL Hct 37.7 (35.3-44.9) % Plt Count 253 (140-400) K/mcL Neutrophils # 9.6 H (1.6-8.9) K/mcL BMP 02/28/17 05:14 Sodium 134 L Potassium 4.3 Chloride 106 Carbon Dioxide 18 L BUN 53 H Creatinine 1.93 H Glucose 187 H Calcium 7.9 L Liver Function 02/28/17 Range/Units 05:14 Total Bilirubin 0.6 (0.2-1.2) mg/dL AST 13 (5-34) Units/L ALT 22 (0-55) Units/L Alkaline Phosphatase 79 (38-126) Units/L Albumin 2.4 L (3.5-5.0) g/dL - ABG Interpretation ABG results: ABG ABG pH 7.47 pH Units (7.32-7.45) H 02/26/17 14:14 ABG pCO2 33 mmHg (35-45) L 02/26/17 14:14 ABG pO2 153 mmHg (85-104) H 02/26/17 14:14 ABG O2 Saturation 100 % (95-98) H 02/26/17 14:14 - Impressions Impressions Retroperitoneum Ultrasound 02/27/17 17:30 IMPRESSION: Unremarkable ultrasound of the kidneys and bladder. D/ / Juan R Lindsay MD / Juan R Lindsay MD Interpreting Provider: Juan R Lindsay MD Consult Discharge Plan - Plan Referrals: Vic Glasgow MD [Primary Care Provider] -
[2017-03-01 05:03] LABS: Potassium 4.4 mEq/L (3.5-4.5)
[2017-03-01 07:02] LABS: Basophils % 0.4 %; Eosinophils # 0.1 K/mcL (0.0-0.6); Eosinophils % 1.4 %; Hematocrit 35.3 % (35.3-44.9); Hemoglobin 10.9 g/dL (11.5-15.4); Immature Granulocytes % 0.5 % (0-4); Immature Platelets 4.4 % (1.1-6.1); Lymphocytes # 1.2 K/mcL (0.6-4.6); Lymphocytes % 14.1 %; Mean Corpuscular HGB Conc 30.9 g/dL (31.6-35.5); Mean Corpuscular Hemoglobin 29.7 pg (28.0-33.3); Mean Platelet Volume 11.2 fL (9.4-12.4); Monocytes # 0.8 K/mcL (0.0-1.3); Monocytes % 9.5 %; Neutrophils # 6.3 K/mcL (1.6-8.9); Platelet Count 218 K/mcL (140-400); Red Blood Count 3.67 M/mcL (3.82-4.97); Red Cell Distribution Width 16.8 % (11.5-14.5); Segmented Neutrophils % 74.1 %
[2017-03-01 07:03] LABS: Mean Corpuscular Volume 96.2 fL (83.0-100.0)
[2017-03-01] MEDS: Insulin LISPRO 300 UNITS/3 ML VIAL SQ SCH ×4 (07:51→20:41)
[2017-03-01] MEDS: Insulin DETEMIR 100 UNIT/ML X5UNITS SQ SCH ×2 (08:00→20:42)
[2017-03-01] MEDS: Acetaminophen 325 MG TABLET PO PRN ×2 (08:01→20:39)
[2017-03-01] MEDS: amLODIPine 5 MG TABLET PO SCH ×2 (08:01→20:38)
[2017-03-01] MEDS: APIXABAN 5 MG TABLET PO SCH ×2 (08:01→20:38)
[2017-03-01] MEDS: Aspirin 81 MG TAB.CHEW PO SCH (08:01)
[2017-03-01] MEDS: Methyl Salicylate/Menthol 28 GM TUBE TP PRN ×2 (08:02→20:42)
[2017-03-01] MEDS: 0.9 % Sodium Chloride 1,000 ML IVC SCH (08:14)
--- NOTE | 2017-03-01 14:15 | Internal Med Progress Note ---
Date of Encounter: 03/01/17 Time of Encounter: 09:40 - Assessment and plan (1) HCAP (healthcare-associated pneumonia) Current Visit: Yes Status: Acute Assessment and plan: On intravenous levofloxacin. We will transition to oral dosing. Leukocytosis has resolved. No longer having any fevers or chills. Mental status is also significantly improved. Blood cultures remain negative. Will complete a 14 day treatment course. (2) Acute metabolic encephalopathy Current Visit: Yes Status: Resolved Assessment and plan: Improved. Patient appears to be returning to baseline. (3) Acute kidney failure, unspecified Current Visit: Yes Status: Suspected Assessment and plan: Renal function improving. However patient developing hyperchloremic acidosis. Will change IV fluids to D5 half normal saline. Qualifiers: Acute renal failure type: with acute tubular necrosis Qualified Code(s): N17.0 - Acute kidney failure with tubular necrosis (4) CAD (coronary artery disease) Current Visit: Yes Status: Chronic Assessment and plan: No chest pain. Continue home medications Qualifiers: Coronary Disease-Associated Artery/Lesion type: bypass graft [place] vs. transplanted heart: [place] heart Associated angina: without angina Qualified Code(s): I25.810 - Atherosclerosis of coronary artery bypass graft(s) without angina pectoris (5) Chronic lower back pain Current Visit: No Status: Chronic Assessment and plan: Controlled. No acute issues at this time Qualifiers: Back pain laterality: right Sciatica presence: without sciatica Qualified Code(s): M54.5 - Low back pain; G89.29 - Other chronic pain (6) CKD (chronic kidney disease) stage 3, GFR 30-59 ml/min Current Visit: No Status: Chronic (7) History of pulmonary embolus (PE) Current Visit: Yes Status: Chronic Assessment and plan: On Eliquis (8) Hypertension Current Visit: Yes Status: Chronic Assessment and plan: Blood pressure is well controlled Qualifiers: Hypertension type: essential hypertension Qualified Code(s): I10 - Essential (primary) hypertension - Subjective Interval history: Patient is doing well this morning. Awake and alert and answering questions appropriately. Knows that she is at [facility] in [place] and that this is February. Denies any pain. No new complaints at this time. No fever reported - Constitutional Vitals: Temp Pulse Resp BP Pulse Ox 98.4 F 71 15 137/72 96 03/01/17 12:28 03/01/17 12:28 03/01/17 12:28 03/01/17 12:28 03/01/17 12:28 General appearance: Present: A&O X 2, no acute distress, answers questions appropriately - Neck Neck exam general surgery: Present: supple, trachea midline. Absent: lymphadenopathy - Respiratory Respiratory exam: Present: CTAB. Absent: accessory muscle use, rales, rhonchi, wheezes - Cardiovascular Cardiovascular exam: Present: RRR, +S1, +S2. Absent: diastolic murmur, gallop, rubs, systolic murmur - GI/Abdominal GI/Abdominal exam: Present: normal bowel sounds, soft, no peritoneal signs. Absent: distended, tenderness - Neurological Exam Neurological exam: Present: alert, no focal deficits. Absent: facial droop, speech deficit - Skin Skin exam: Present: dry, intact Internal Medicine: Result - Labs CBC & Chem 7: 03/01/17 06:39 03/01/17 04:38 Labs: Short CBC 03/01/17 Range/Units 06:39 WBC 8.5 (4.3-11.1) K/mcL Hgb 10.9 L (11.5-15.4) g/dL Hct 35.3 (35.3-44.9) % Plt Count 218 (140-400) K/mcL Neutrophils # 6.3 (1.6-8.9) K/mcL BMP 03/01/17 04:38 Sodium 137 Potassium 4.4 Chloride 111 H Carbon Dioxide 17 L BUN 61 H Creatinine 1.68 H Glucose 117 H Calcium 8.0 L - ABG Interpretation ABG results: ABG ABG pH 7.47 pH Units (7.32-7.45) H 02/26/17 14:14 ABG pCO2 33 mmHg (35-45) L 02/26/17 14:14 ABG pO2 153 mmHg (85-104) H 02/26/17 14:14 ABG O2 Saturation 100 % (95-98) H 02/26/17 14:14 Consult Discharge Plan - Plan Referrals: Vic Glasgow MD [Primary Care Provider] -
--- NOTE | 2017-03-01 15:26 | Nephrology Progress Note ---
Date of Encounter: 03/01/17 Time of Encounter: 14:55 - Assessment and Plan (1) Acute kidney failure, unspecified Current Visit: Yes Status: Suspected SEUN in hospital setting, unclear etiology. Creat slowly improved 1.68. Urine output documented at 500cc for yesterday. Prior history of renal insufficiency provided by daughter whom states numbers have been stable for many years. Renal US essentially unremarkable. Would continue IV fluids. Avoid nephrotoxins. Will continue to monitor. Qualifiers: Acute renal failure type: with acute tubular necrosis Qualified Code(s): N17.0 - Acute kidney failure with tubular necrosis Subjective Interval history: Laying in bed. Alert. Seems somewhat confused and COMANCHE. Daughter at bedside- gave additional information that patient had prior history of CKD though numbers stable for some time with PCP monitoring. She thinks her mother was a patient of Dr. Uribe's many years ago. Patient and daughter think mentation greatly improved. States increased oral intake but not at her norm. Urine in griffiths bag tea color. Objective - Vital Signs Vital signs: Vital Signs Temp Pulse Resp BP Pulse Ox 03/01/17 12:28 98.4 F 71 15 137/72 96 03/01/17 07:51 95 03/01/17 07:34 97.8 F 77 16 138/74 95 03/01/17 04:11 98.1 F 64 14 136/74 97 02/28/17 23:49 98.0 F 71 14 122/72 94 02/28/17 19:06 98.5 F 99 14 137/83 96 Intake and Output 02/28/17 03/01/17 03/01/17 23:59 07:59 15:59 Intake Total 1360 / 1360 360 / 360 1000 / 1000 Output Total 350 / 350 500 / 500 400 / 400 Balance 1010 / 1010 -140 / -140 600 / 600 Intake: IV Fluids 1000 / 1000 1000 / 1000 0.9 % Sodium Chloride 1, 1000 / 1000 1000 / 1000 000 ML @ 100 mls/hr IVC . Q10H EDGARD Rx#:[id number] Oral 360 / 360 360 / 360 Output: Urine 0 / 0 Catheter 350 / 350 500 / 500 400 / 400 Other: Stool Size Moderate Moderate Stool Consistency soft loose soft Stool Color Brown Brown # Bowel Movement Diapers 1 Weight 80.739 kg Blood Glucose* 81 105 89 Patient Weight 03/01/17 23:59 Weight 80.739 kg - General Appearance General appearance: Present: well-developed, well-nourished, appears started age EENT: Present: mucous membranes moist Neck: Present: no JVD Respiratory: Present: clear Cardiology: Present: no edema, irregular rhythm Gastrointestinal: Present: normoactive bowel sounds, no tenderness Integumentary: Present: warm and dry Psychiatric: Present: mood/affect appropriate, cooperative - Lab 03/01/17 06:39 03/01/17 04:38 Most recent lab results ABG pH 7.47 pH Units (7.32-7.45) H 02/26/17 14:14 ABG pCO2 33 mmHg (35-45) L 02/26/17 14:14 ABG pO2 153 mmHg (85-104) H 02/26/17 14:14 ABG HCO3 24.0 mEQ/L (21-27) 02/26/17 14:14 ABG O2 Saturation 100 % (95-98) H 02/26/17 14:14 Calcium 8.0 mg/dL (8.6-10.8) L 03/01/17 04:38 Phosphorus 4.8 mg/dL (2.3-4.7) H 02/27/17 05:14 Magnesium 1.8 mg/dL (1.6-2.6) 02/27/17 05:14 Consult Discharge Plan - Plan Referrals: Vic Glasgow MD [Primary Care Provider] -
[2017-03-01] MEDS: D5% in 0.45% NACL 1,000 ML IVC SCH (19:12)
[2017-03-02] MEDS: Acetaminophen 325 MG TABLET PO PRN (04:12)
[2017-03-02 04:42] LABS: Calcium 7.8 mg/dL (8.6-10.8)
[2017-03-02] MEDS: Insulin LISPRO 300 UNITS/3 ML VIAL SQ SCH ×4 (09:19→20:50)
[2017-03-02] MEDS: Insulin DETEMIR 100 UNIT/ML X5UNITS SQ SCH ×2 (09:19→20:49)
[2017-03-02] MEDS: Aspirin 81 MG TAB.CHEW PO SCH (09:20)
[2017-03-02] MEDS: amLODIPine 5 MG TABLET PO SCH ×2 (09:20→20:47)
[2017-03-02] MEDS: APIXABAN 5 MG TABLET PO SCH ×2 (09:21→20:46)
[2017-03-02] MEDS: D5% in 0.45% NACL 1,000 ML IVC SCH (09:21)
--- NOTE | 2017-03-02 09:21 | Nephrology Progress Note ---
Date of Encounter: 03/02/17 Time of Encounter: 09:05 - Assessment and Plan (1) Acute kidney failure, unspecified Current Visit: Yes Status: Suspected SEUN in hospital setting, unclear etiology. Creat slowly improved 1.27. Stable CKD per daughter. Renal US essentially unremarkable. Will sign off. Call if needed. Qualifiers: Acute renal failure type: with acute tubular necrosis Qualified Code(s): N17.0 - Acute kidney failure with tubular necrosis Subjective Interval history: Sitting up in chair. Alert. Seems somewhat confused and [place]. States increased oral intake but not at her norm. Urine in griffiths bag tea color. Objective - Vital Signs Vital signs: Vital Signs Temp Pulse Resp BP Pulse Ox 03/02/17 07:26 98.5 F 74 17 125/97 98 03/02/17 05:08 98.2 F 70 15 152/57 98 03/01/17 20:15 98.4 F 88 16 157/76 95 03/01/17 16:18 97.8 F 79 16 131/69 96 03/01/17 12:28 98.4 F 71 15 137/72 96 Intake and Output 03/01/17 03/02/17 03/02/17 23:59 07:59 15:59 Intake Total 460 / 460 220 / 220 Output Total 575 / 575 500 / 500 Balance -115 / -115 -280 / -280 Intake: Oral 460 / 460 220 / 220 Output: Catheter 575 / 575 500 / 500 Other: Meal Dinner Percent of Meal Consumed 75% Stool Size Small Stool Consistency loose Stool Color Brown Weight 80.876 kg Blood Glucose* 208 162 Patient Weight 03/02/17 23:59 Weight 80.876 kg - General Appearance General appearance: Present: well-developed, well-nourished, appears started age EENT: Present: mucous membranes moist Neck: Present: no JVD Respiratory: Present: clear Cardiology: Present: no edema, regular rate, regular rhythm Gastrointestinal: Present: normoactive bowel sounds, no tenderness Integumentary: Present: warm and dry Psychiatric: Present: mood/affect appropriate, cooperative - Lab 03/01/17 06:39 03/02/17 04:19 Most recent lab results ABG pH 7.47 pH Units (7.32-7.45) H 02/26/17 14:14 ABG pCO2 33 mmHg (35-45) L 02/26/17 14:14 ABG pO2 153 mmHg (85-104) H 02/26/17 14:14 ABG HCO3 24.0 mEQ/L (21-27) 02/26/17 14:14 ABG O2 Saturation 100 % (95-98) H 02/26/17 14:14 Calcium 7.8 mg/dL (8.6-10.8) L 03/02/17 04:19 Phosphorus 4.8 mg/dL (2.3-4.7) H 02/27/17 05:14 Magnesium 1.8 mg/dL (1.6-2.6) 02/27/17 05:14 Consult Discharge Plan - Plan Referrals: Vic Glasgow MD [Primary Care Provider] -
[2017-03-02] MEDS: *HR* HYDROcodone/Acet 5/325 mg TABLET PO PRN ×2 (11:36→20:47)
[2017-03-02] MEDS: levoFLOXacin 500 MG TABLET PO SCH (11:36)
--- NOTE | 2017-03-02 15:50 | Internal Med Progress Note ---
Date of Encounter: 03/02/17 Time of Encounter: 09:50 - Assessment and plan (1) HCAP (healthcare-associated pneumonia) Current Visit: Yes Status: Acute Assessment and plan: Continue levofloxacin. Will change antibiotic to oral dosing. Clinically getting better. Mental status has significantly improved. (2) Acute metabolic encephalopathy Current Visit: Yes Status: Resolved (3) Acute kidney failure, unspecified Current Visit: Yes Status: Acute Assessment and plan: Resolving. Creatinine 1.27 today. At baseline Qualifiers: Acute renal failure type: with acute tubular necrosis Qualified Code(s): N17.0 - Acute kidney failure with tubular necrosis (4) CAD (coronary artery disease) Current Visit: Yes Status: Chronic Assessment and plan: Continue current medications. No acute issues Qualifiers: Coronary Disease-Associated Artery/Lesion type: bypass graft [place] vs. transplanted heart: [place] heart Associated angina: without angina Qualified Code(s): I25.810 - Atherosclerosis of coronary artery bypass graft(s) without angina pectoris (5) Chronic lower back pain Current Visit: No Status: Chronic Assessment and plan: With acute pain today. We will place patient back on home dosage of [place]. Qualifiers: Back pain laterality: right Sciatica presence: without sciatica Qualified Code(s): M54.5 - Low back pain; G89.29 - Other chronic pain (6) CKD (chronic kidney disease) stage 3, GFR 30-59 ml/min Current Visit: No Status: Chronic (7) History of pulmonary embolus (PE) Current Visit: Yes Status: Chronic Assessment and plan: Continue Eliquis (8) Hypertension Current Visit: Yes Status: Chronic Assessment and plan: Blood pressure is well controlled Qualifiers: Hypertension type: essential hypertension Qualified Code(s): I10 - Essential (primary) hypertension - Subjective Interval history: Patient is sitting up in chair. Complains of low back pain. She also complains of left ear pain which she says began feels is due to her hearing aid. Denies any decreased hearing or tinnitus. No abdominal pain. No dysuria. - Constitutional Vitals: Temp Pulse Resp BP Pulse Ox 97.7 F 70 16 132/71 96 03/02/17 15:06 03/02/17 15:06 03/02/17 15:06 03/02/17 15:06 03/02/17 15:06 General appearance: Present: A&O X 2, no acute distress, answers questions appropriately - Neck Neck exam general surgery: Present: supple, trachea midline. Absent: lymphadenopathy - Respiratory Respiratory exam: Present: CTAB. Absent: accessory muscle use, rales, rhonchi, wheezes - Cardiovascular Cardiovascular exam: Present: RRR, +S1, +S2. Absent: diastolic murmur, gallop, rubs, systolic murmur - GI/Abdominal GI/Abdominal exam: Present: normal bowel sounds, soft, no peritoneal signs. Absent: distended, tenderness - Extremities Exam Extremities exam: Present: warm, radial pulses palpable and symmetrical. Absent : calf tenderness, cyanotic, pedal edema Internal Medicine: Result - Labs CBC & Chem 7: 03/01/17 06:39 03/02/17 04:19 Labs: BMP 03/02/17 04:19 Sodium 137 Potassium 4.0 Chloride 113 H Carbon Dioxide 19 BUN 52 H Creatinine 1.27 H Glucose 182 H Calcium 7.8 L - ABG Interpretation ABG results: ABG ABG pH 7.47 pH Units (7.32-7.45) H 02/26/17 14:14 ABG pCO2 33 mmHg (35-45) L 02/26/17 14:14 ABG pO2 153 mmHg (85-104) H 02/26/17 14:14 ABG O2 Saturation 100 % (95-98) H 02/26/17 14:14 Consult Discharge Plan - Plan Referrals: Vic Glasgow MD [Primary Care Provider] -
[2017-03-03] MEDS: Acetaminophen 325 MG TABLET PO PRN ×2 (01:46→12:41)
[2017-03-03] MEDS: amLODIPine 5 MG TABLET PO SCH ×2 (08:31→20:23)
[2017-03-03] MEDS: Aspirin 81 MG TAB.CHEW PO SCH (08:32)
[2017-03-03] MEDS: APIXABAN 5 MG TABLET PO SCH ×2 (08:32→20:23)
[2017-03-03] MEDS: Lisinopril 20 MG TABLET PO SCH (08:32)
[2017-03-03] MEDS: Insulin LISPRO 300 UNITS/3 ML VIAL SQ SCH ×4 (08:34→20:22)
[2017-03-03] MEDS: Insulin DETEMIR 100 UNIT/ML X5UNITS SQ SCH ×2 (08:34→20:23)
--- NOTE | 2017-03-03 14:10 | Internal Med Progress Note ---
Date of Encounter: 03/03/17 Time of Encounter: 09:00 - Assessment and plan (1) HCAP (healthcare-associated pneumonia) Current Visit: Yes Status: Acute Assessment and plan: On oral levofloxacin. Cultures are negative. Today is day 5 of antibiotics. We will continue antibiotics for 5 more days and then stop. (2) Acute metabolic encephalopathy Current Visit: Yes Status: Resolved (3) Acute kidney failure, unspecified Current Visit: Yes Status: Acute Assessment and plan: Acute kidney injury has resolved. Creatinine is back at her baseline. Qualifiers: Acute renal failure type: with acute tubular necrosis Qualified Code(s): N17.0 - Acute kidney failure with tubular necrosis (4) CAD (coronary artery disease) Current Visit: Yes Status: Chronic Qualifiers: Coronary Disease-Associated Artery/Lesion type: bypass graft [place] vs. transplanted heart: [place] heart Associated angina: without angina Qualified Code(s): I25.810 - Atherosclerosis of coronary artery bypass graft(s) without angina pectoris (5) Chronic lower back pain Current Visit: Yes Status: Chronic Assessment and plan: With acute worsening. CT scans done during this hospitalization did not show any acute fracture. Patient has received steroid injections in the past with improvement in her symptoms and patient requests for another injection at this time. Will refer patient to pain management at time of discharge so that she can be set up for steroid injections and pain management as outpatient. For now continue Tylenol and Evangeline for pain control. Continue physical therapy. Placement to skilled rehabilitation Qualifiers: Back pain laterality: right Sciatica presence: without sciatica Qualified Code(s): M54.5 - Low back pain; G89.29 - Other chronic pain (6) CKD (chronic kidney disease) stage 3, GFR 30-59 ml/min Current Visit: No Status: Chronic (7) History of pulmonary embolus (PE) Current Visit: Yes Status: Chronic Assessment and plan: continue Eliquis (8) Hypertension Current Visit: Yes Status: Chronic Assessment and plan: Blood pressure is elevated. However patient has not been placed back on lisinopril. We will monitor blood pressure and adjust antihypertensive regimen accordingly. Qualifiers: Hypertension type: essential hypertension Qualified Code(s): I10 - Essential (primary) hypertension - Subjective Interval history: Patient complaining of severe low back pain. She took Evangeline but developed nausea with it. Denies any ear pain today. Tolerating diet well. Patient concerned about being discharged from the hospital while she is in so much pain. Explained to her that she does not have an acute fracture but I will refer her to pain management for possible steroid injection into her lower back at time of discharge. Expressed understanding. No other acute issues reported overnight - Constitutional Vitals: Temp Pulse Resp BP Pulse Ox 98.1 F 65 16 162/80 100 03/03/17 11:29 03/03/17 11:29 03/03/17 11:29 03/03/17 11:29 03/03/17 11:29 General appearance: Present: A&O X 2, mild distress, answers questions appropriately - Neck Neck exam general surgery: Present: supple, trachea midline. Absent: lymphadenopathy - Respiratory Respiratory exam: Present: CTAB. Absent: accessory muscle use, rales, rhonchi, wheezes - Cardiovascular Cardiovascular exam: Present: RRR, +S1, +S2. Absent: diastolic murmur, gallop, rubs, systolic murmur - GI/Abdominal GI/Abdominal exam: Present: normal bowel sounds, soft, no peritoneal signs. Absent: distended, tenderness - Extremities Exam Extremities exam: Present: pedal edema, warm, radial pulses palpable and symmetrical. Absent: calf tenderness, cyanotic Internal Medicine: Result - Labs CBC & Chem 7: 03/01/17 06:39 03/02/17 04:19 - ABG Interpretation ABG results: ABG ABG pH 7.47 pH Units (7.32-7.45) H 02/26/17 14:14 ABG pCO2 33 mmHg (35-45) L 02/26/17 14:14 ABG pO2 153 mmHg (85-104) H 02/26/17 14:14 ABG O2 Saturation 100 % (95-98) H 02/26/17 14:14 Consult Discharge Plan - Plan Referrals: Vic Glasgow MD [Primary Care Provider] -
[2017-03-03] MEDS: *HR* HYDROcodone/Acet 5/325 mg TABLET PO PRN (16:12)
[2017-03-03 17:46] LABS: Bilirubin,Urine Negative (Negative); Blood,Urine Large (Negative); Clarity,Urine Clear (Clear); Color,Urine Yellow (Yellow); Glucose,Urine (UA) Normal (Normal); Ketones,Urine Negative (Negative); Leukocyte Esterase,Urine Negative (Negative); Nitrite,Urine Negative (Negative); Protein,Urine Negative (Neg-Trace); Specific Gravity,Urine 1.009 (1.010-1.025); Urobilinogen,Urine Normal (Normal)
[2017-03-03 17:58] LABS: Bacteria,Urine Few per hpf (None-Few); RBC,Urine 15-30 per hpf (0-3); Squamous Epithelial Cell,Urine Few per lpf (None-Few); WBC,Urine 0-3 per hpf (0-3)
[2017-03-04] MEDS: Methyl Salicylate/Menthol 28 GM TUBE TP PRN (01:51)
[2017-03-04] MEDS: Acetaminophen 325 MG TABLET PO PRN (04:58)
[2017-03-04] MEDS: Insulin DETEMIR 100 UNIT/ML X5UNITS SQ SCH ×2 (08:21→21:13)
[2017-03-04] MEDS: Insulin LISPRO 300 UNITS/3 ML VIAL SQ SCH ×4 (08:22→21:13)
[2017-03-04] MEDS: Aspirin 81 MG TAB.CHEW PO SCH (08:23)
[2017-03-04] MEDS: amLODIPine 5 MG TABLET PO SCH ×2 (08:23→21:13)
[2017-03-04] MEDS: APIXABAN 5 MG TABLET PO SCH ×2 (08:23→21:12)
[2017-03-04] MEDS: Lisinopril 20 MG TABLET PO SCH (08:24)
[2017-03-04 09:05] LABS: Basophils % 0.6 %; Eosinophils # 0.3 K/mcL (0.0-0.6); Eosinophils % 4.1 %; Hematocrit 35.7 % (35.3-44.9); Hemoglobin 11.4 g/dL (11.5-15.4); Immature Granulocytes % 0.9 % (0-4); Lymphocytes # 1.9 K/mcL (0.6-4.6); Lymphocytes % 29.6 %; Mean Corpuscular HGB Conc 31.9 g/dL (31.6-35.5); Mean Corpuscular Hemoglobin 30.5 pg (28.0-33.3); Mean Corpuscular Volume 95.5 fL (83.0-100.0); Monocytes # 0.7 K/mcL (0.0-1.3); Monocytes % 10.7 %; Neutrophils # 3.5 K/mcL (1.6-8.9); Platelet Count 255 K/mcL (140-400); Red Blood Count 3.74 M/mcL (3.82-4.97); Red Cell Distribution Width 16.1 % (11.5-14.5); Segmented Neutrophils % 54.1 %
[2017-03-04 09:37] LABS: BUN/Creatinine Ratio 32 (6-26); Calcium 8.4 mg/dL (8.6-10.8); Carbon Dioxide 19 mEq/L (19-29); Chloride 112 mEq/L (98-109); Glucose 245 mg/dL (70-99); Osmolality,Calculated 304 (280-300); Potassium 4.5 mEq/L (3.5-4.5); Sodium 140 mEq/L (136-145); eGFR For African Americans > 60 (> 60); eGFR For Non-African Americans 56 (> 60)
[2017-03-04 09:44] LABS: Blood Urea Nitrogen 30 mg/dL (7-20)
[2017-03-04] MEDS: levoFLOXacin 500 MG TABLET PO SCH (12:25)
--- NOTE | 2017-03-04 14:56 | Internal Med Progress Note ---
Date of Encounter: 03/04/17 Time of Encounter: 09:50 - Assessment and plan (1) HCAP (healthcare-associated pneumonia) Current Visit: Yes Status: Acute Assessment and plan: On levofloxacin. Continue treatment for 4 more days. (2) Acute metabolic encephalopathy Current Visit: Yes Status: Resolved (3) Acute kidney failure, unspecified Current Visit: Yes Status: Acute Assessment and plan: This has resolved. Qualifiers: Acute renal failure type: with acute tubular necrosis Qualified Code(s): N17.0 - Acute kidney failure with tubular necrosis (4) CAD (coronary artery disease) Current Visit: Yes Status: Chronic Assessment and plan: No chest pain. Continue aspirin and statin and beta janes Qualifiers: Coronary Disease-Associated Artery/Lesion type: bypass graft [place] vs. transplanted heart: [place] heart Associated angina: without angina Qualified Code(s): I25.810 - Atherosclerosis of coronary artery bypass graft(s) without angina pectoris (5) Chronic lower back pain Current Visit: Yes Status: Chronic Assessment and plan: With acute exacerbation. Discussed plan of care with patient. She wants steroid injection. We will discuss with social service liaison and try to arrange for patient to receive it through her primary care provider. For now continue physical therapy, pain control with Tylenol. Patient not doing well with [place]. We will stop this medication and instead place her on tramadol. Awaiting placement to skilled rehabilitation Qualifiers: Back pain laterality: right Sciatica presence: without sciatica Qualified Code(s): M54.5 - Low back pain; G89.29 - Other chronic pain (6) CKD (chronic kidney disease) stage 3, GFR 30-59 ml/min Current Visit: No Status: Chronic (7) History of pulmonary embolus (PE) Current Visit: Yes Status: Chronic Assessment and plan: continue Eliquis (8) Hypertension Current Visit: Yes Status: Chronic Assessment and plan: Blood pressure elevated today. Continue amlodipine, metoprolol. Will increase metoprolol dosage. Qualifiers: Hypertension type: essential hypertension Qualified Code(s): I10 - Essential (primary) hypertension - Subjective Interval history: Patient states that she had a TIA last night with right upper extremity numbness. She said she had some palpitations then and was given a medication through her IV. Her symptoms have now resolved. Unclear how much of this is true because in discussion with the nursing staff, she did not have any such symptoms. She did have some nausea and was prescribed Zofran but did not receive it. She complains of some bladder pain related to presence of [place] catheter. - Constitutional Vitals: Temp Pulse Resp BP Pulse Ox 98.7 F 80 14 150/70 96 03/04/17 11:10 03/04/17 07:49 03/04/17 07:49 03/04/17 11:10 03/04/17 07:49 General appearance: Present: A&O X 2, mild distress, answers questions appropriately - Neck Neck exam general surgery: Present: supple, trachea midline. Absent: lymphadenopathy - Respiratory Respiratory exam: Present: CTAB. Absent: accessory muscle use, rales, rhonchi, wheezes - Cardiovascular Cardiovascular exam: Present: RRR, +S1, +S2. Absent: diastolic murmur, gallop, rubs, systolic murmur - GI/Abdominal GI/Abdominal exam: Present: normal bowel sounds, soft, no peritoneal signs. Absent: distended, tenderness - Neurological Exam Neurological exam: Present: alert, oriented X3, no focal deficits, strengths equal and symetr throughout. Absent: facial droop, speech deficit Internal Medicine: Result - Labs CBC & Chem 7: 03/04/17 08:56 03/04/17 08:56 Labs: Short CBC 03/04/17 Range/Units 08:56 WBC 6.5 (4.3-11.1) K/mcL Hgb 11.4 L (11.5-15.4) g/dL Hct 35.7 (35.3-44.9) % Plt Count 255 (140-400) K/mcL Neutrophils # 3.5 (1.6-8.9) K/mcL BMP 03/04/17 08:56 Sodium 140 Potassium 4.5 Chloride 112 H Carbon Dioxide 19 BUN 30 H D Creatinine 0.95 Glucose 245 H Calcium 8.4 L Urine 03/03/17 Range/Units 17:35 Urine Color Yellow (Yellow) Urine Clarity Clear (Clear) Urine pH 6.0 (5.0-8.0) pH Units Ur Specific [place] 1.009 L (1.010-1.025) Urine Protein Negative (Neg-Trace) mg/dL Urine Glucose (UA) Normal (Normal) mg/dL - ABG Interpretation ABG results: ABG ABG pH 7.47 pH Units (7.32-7.45) H 02/26/17 14:14 ABG pCO2 33 mmHg (35-45) L 02/26/17 14:14 ABG pO2 153 mmHg (85-104) H 02/26/17 14:14 ABG O2 Saturation 100 % (95-98) H 02/26/17 14:14 Consult Discharge Plan - Plan Referrals: Vic Glasgow MD [Primary Care Provider] -
[2017-03-04] MEDS ORDERED: traMADol 50 MG TABLET PO PRN (15:01)
[2017-03-04] MEDS ORDERED: levoFLOXacin 250 MG TABLET PO ONE (15:30)
[2017-03-04] MEDS: Mag Hydrox/Al Hydrox/Simeth 30 ML UDC PO PRN ×2 (15:47→21:13)
[2017-03-05] MEDS: Acetaminophen 325 MG TABLET PO PRN ×2 (00:41→10:08)
[2017-03-05 03:44] LABS: Basophils # 0.1 K/mcL (0.0-0.2); Basophils % 0.7 %; Eosinophils # 0.2 K/mcL (0.0-0.6); Eosinophils % 2.6 %; Hematocrit 33.8 % (35.3-44.9); Hemoglobin 10.7 g/dL (11.5-15.4); Lymphocytes # 2.2 K/mcL (0.6-4.6); Lymphocytes % 31.8 %; Mean Corpuscular HGB Conc 31.7 g/dL (31.6-35.5); Mean Corpuscular Hemoglobin 30.1 pg (28.0-33.3); Mean Corpuscular Volume 95.2 fL (83.0-100.0); Mean Platelet Volume 11.1 fL (9.4-12.4); Monocytes # 0.8 K/mcL (0.0-1.3); Monocytes % 11.4 %; Neutrophils # 3.7 K/mcL (1.6-8.9); Platelet Count 269 K/mcL (140-400); Red Blood Count 3.55 M/mcL (3.82-4.97); Red Cell Distribution Width 15.9 % (11.5-14.5); Segmented Neutrophils % 52.5 %
[2017-03-05 03:56] LABS: BUN/Creatinine Ratio 31 (6-26); Blood Urea Nitrogen 29 mg/dL (7-20); Calcium 8.7 mg/dL (8.6-10.8); Carbon Dioxide 25 mEq/L (19-29); Chloride 112 mEq/L (98-109); Glucose 50 mg/dL (70-99); Osmolality,Calculated 299 (280-300); Potassium 3.9 mEq/L (3.5-4.5); Sodium 143 mEq/L (136-145); eGFR For African Americans > 60 (> 60); eGFR For Non-African Americans 56 (> 60)
--- NOTE | 2017-03-05 07:14 | Event Note ---
Date of Encounter: 03/05/17 Time of Encounter: 07:12 Assessed at bedside due to chest pain. Described as mild chest pressure. No dyspnea. Patient thinks its anxiety or her 'bladder problem' causing the chest pain. Noted history of CAD/CABG. - EKG: no ischemic changes - check troponin
[2017-03-05] MEDS: Insulin LISPRO 300 UNITS/3 ML VIAL SQ SCH ×2 (08:24→11:37)
[2017-03-05] MEDS: Mag Hydrox/Al Hydrox/Simeth 30 ML UDC PO PRN (09:35)
[2017-03-05] MEDS: Insulin DETEMIR 100 UNIT/ML X5UNITS SQ SCH (10:05)
[2017-03-05] MEDS: amLODIPine 5 MG TABLET PO SCH (10:05)
[2017-03-05] MEDS: Lisinopril 20 MG TABLET PO SCH (10:05)
[2017-03-05] MEDS: Aspirin 81 MG TAB.CHEW PO SCH (10:05)
[2017-03-05] MEDS: APIXABAN 5 MG TABLET PO SCH (10:06)
[2017-03-05 11:31] VITALS: BP 160/77
--- NOTE | 2017-03-05 12:23 | Discharge Summary ---
Date of Encounter: 03/05/17 Time of Encounter: 12:19 - Discharge Diagnosis (1) HCAP (healthcare-associated pneumonia) Priority: Primary Status: Acute (2) Acute metabolic encephalopathy Priority: Secondary Status: Resolved (3) Acute kidney failure, unspecified Priority: Secondary Status: Resolved Qualifiers: Acute renal failure type: with acute tubular necrosis Qualified Code(s): N17.0 - Acute kidney failure with tubular necrosis (4) CAD (coronary artery disease) Priority: Secondary Status: Chronic Qualifiers: Coronary Disease-Associated Artery/Lesion type: bypass graft [place] vs. transplanted heart: [place] heart Associated angina: without angina Qualified Code(s): I25.810 - Atherosclerosis of coronary artery bypass graft(s) without angina pectoris (5) Chronic lower back pain Priority: Secondary Status: Chronic Qualifiers: Back pain laterality: right Sciatica presence: without sciatica Qualified Code(s): M54.5 - Low back pain; G89.29 - Other chronic pain (6) CKD (chronic kidney disease) stage 3, GFR 30-59 ml/min Priority: Secondary Status: Chronic (7) History of pulmonary embolus (PE) Priority: Secondary Status: Chronic (8) Hypertension Priority: Secondary Status: Chronic Qualifiers: Hypertension type: essential hypertension Qualified Code(s): I10 - Essential (primary) hypertension - Discharge Medications Home Medications: Aspirin 81 mg PO DAILY 11/06/15 [History] Insulin ASPART [NovoLOG] 4 - 10 unit SQ TIDWM PRN 11/06/15 [History] Insulin DETEMIR [Levemir] 12 unit SQ QAM 11/06/15 [History] Simvastatin [Zocor] 10 mg PO DAILY 11/06/15 [History] Gabapentin [Neurontin] 100 mg PO TID PRN 11/28/15 [History] amLODIPine [Norvasc] 5 mg PO BID #60 tablet 07/06/16 [Rx] Lisinopril [Zestril] 40 mg PO DAILY 11/05/16 [History] Lidocaine Patch [Lidoderm 5% patch] 1 patch TP DAILY PRN 12/01/16 [History] Methyl Salicylate/Menthol [Bengay] 1 appl TP BID PRN 12/01/16 [History] Docusate [Colace] 100 mg PO BID #20 capsule 01/03/17 [Rx] Buspirone HCl [Buspar] 5 mg PO BID 02/24/17 [History] Polyethylene Glycol 3350 [MiraLAX Powder Bulk 17.9 Oz] 17 gm PO DAILY 02/24/17 [ History] Rivaroxaban [Xarelto] 15 mg PO DAILY 02/24/17 [History] Acetaminophen [Tylenol] 650 mg PO Q6HR PRN tab 03/05/17 [Rx] Metoprolol [Lopressor] 25 mg PO BID tab 03/05/17 [Rx] levoFLOXacin [Levaquin] 750 mg PO Q48H 3 Days 03/05/17 [Rx] Allergies/Adverse Reactions: 3 Allergy/AdvReac Type Severity Reaction Status Date / Time Penicillins [PCN] Allergy Rash Verified 02/24/17 10:36 Hydromorphone [From Dilaudid] AdvReac Gastrointestinal Verified 02/24/17 10:36 Upset Date of admission: 02/26/17 14:04 Primary care physician: Vic Glasgow MD Consults: 02/27/17 09:56 Consult to Nephrology [CONS] Routine Consulting Provider: [facility] JEFF Reason for Consult: SEUN on CKD Time Notified: 09:56 Call Completed: Yes Discharging clinician: Elizabeth Hung Anticipated date of discharge: 03/05/17 - Patient Status Disposition: Transfer Hospital Swing Bed Condition: Good Functional capacity at discharge: uses cane/walker Overall status at discharge: patient is progressing back to baseline - Discharge Instructions Instructions: Arm Fracture in Adults (DC), Acute Kidney Injury (DC), Diabetes Mellitus Type 2 in Adults (DC), Chronic Hypertension (DC), Pneumonia (DC) Follow Up With: Vic Glasgow MD [Primary Care Provider] - (IZZY Will see the physician at the [facility]. Thank you) Joaquin Back MD [Non-Partnered Physician] - 03/09/17 8:30 am - Diet and Activity Activity: as per physical therapy Diet: diabetic diet, low fat, low cholesterol, low salt diet Hospital course: Ms. Velasco is a 86 year old female patient who was hospitalized here with altered mental status/acute encephalopathy and acute on chronic low back pain. She has a history of prior pulmonary embolism, atrial fibrillation, diabetes mellitus, hypertension. She was diagnosed with possible bibasilar pneumonia that was healthcare associated. She was treated with IV antibiotics. Her cultures have been negative. Her mental status did improve with this treatment. She was treated with broad-spectrum IV antibiotics including vancomycin. Her renal function declined during her initial stay here. Nephrology was consulted and recommended stopping vancomycin and giving IV fluids. With this treatment plan, her renal function has now improved and she is back to her baseline. She will complete antibiotic course with levofloxacin. CT scan of her lumbar spine showed no acute fracture. 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 I will refer her to pain management for outpatient management of this condition. She was evaluated by physical therapy and recommended placement to skilled rehabilitation. Patient will be discharged to [facility] today. She will follow-up with her primary care provider for further management. - Time Spent with Patient Total time spent providing and/or coordinating discharge services: Greater than 30 minutes (45 min) - Constitutional Vitals: Temp Pulse Resp BP Pulse Ox 97.7 F 68 18 160/77 96 03/05/17 11:30 03/05/17 11:30 03/05/17 11:30 03/05/17 11:30 03/05/17 11:30 General appearance: Present: A&O X 2, no acute distress, answers questions appropriately - Respiratory Respiratory exam: Present: CTAB. Absent: accessory muscle use, rales, rhonchi, wheezes - Cardiovascular Cardiovascular exam: Present: RRR, +S1, +S2. Absent: diastolic murmur, gallop, rubs, systolic murmur - GI/Abdominal GI/Abdominal exam: Present: normal bowel sounds, soft, no peritoneal signs. Absent: distended, tenderness - Neurological Exam Neurological exam: Present: alert, no focal deficits. Absent: facial droop, speech deficit - Skin Skin exam: Present: dry, intact
--- NOTE | 2017-03-05 12:25 | Physician Discharge Referral ---
ExtendedCare Referral Info Provider in Charge after Transfer: PCP Institutional Level of Care: Skilled - Diagnosis (1) HCAP (healthcare-associated pneumonia) Priority: Primary Status: Acute (2) Acute metabolic encephalopathy Priority: Secondary Status: Resolved (3) Acute kidney failure, unspecified Priority: Secondary Status: Resolved (4) CAD (coronary artery disease) Priority: Secondary Status: Chronic (5) Chronic lower back pain Priority: Secondary Status: Chronic (6) CKD (chronic kidney disease) stage 3, GFR 30-59 ml/min Priority: Secondary Status: Chronic (7) History of pulmonary embolus (PE) Priority: Secondary Status: Chronic (8) Hypertension Priority: Secondary Status: Chronic Prognosis: Fair Aware of Diagnosis: Patient, Family Aware of Prognosis: Patient, Family - Transfer Medications Home Medications: Aspirin 81 mg PO DAILY 11/06/15 [History] Insulin ASPART [NovoLOG] 4 - 10 unit SQ TIDWM PRN 11/06/15 [History] Insulin DETEMIR [Levemir] 12 unit SQ QAM 11/06/15 [History] Simvastatin [Zocor] 10 mg PO DAILY 11/06/15 [History] Gabapentin [Neurontin] 100 mg PO TID PRN 11/28/15 [History] amLODIPine [Norvasc] 5 mg PO BID #60 tablet 07/06/16 [Rx] Lisinopril [Zestril] 40 mg PO DAILY 11/05/16 [History] Lidocaine Patch [Lidoderm 5% patch] 1 patch TP DAILY PRN 12/01/16 [History] Methyl Salicylate/Menthol [Bengay] 1 appl TP BID PRN 12/01/16 [History] Docusate [Colace] 100 mg PO BID #20 capsule 01/03/17 [Rx] Buspirone HCl [Buspar] 5 mg PO BID 02/24/17 [History] Polyethylene Glycol 3350 [MiraLAX Powder Bulk 17.9 Oz] 17 gm PO DAILY 02/24/17 [ History] Rivaroxaban [Xarelto] 15 mg PO DAILY 02/24/17 [History] Acetaminophen [Tylenol] 650 mg PO Q6HR PRN tab 03/05/17 [Rx] Metoprolol [Lopressor] 25 mg PO BID tab 03/05/17 [Rx] levoFLOXacin [Levaquin] 750 mg PO Q48H 3 Days 03/05/17 [Rx] Allergies/Adverse Reactions: 3 Allergy/AdvReac Type Severity Reaction Status Date / Time Penicillins [PCN] Allergy Rash Verified 02/24/17 10:36 Hydromorphone [From Dilaudid] AdvReac Gastrointestinal Verified 02/24/17 10:36 Upset - Respiratory Orders Smoking Cessation: Smoking cessation has been advised. For more information, call the [employer] Tobacco Quit Line at 5-982-ICDY-NOW. - Ancillary Orders May consult with Dentist, Numberer And Wirer, Welder Apprentice Combination PRN - Advance Directives Code Status: Full Code - Mobility Orders Other (per PT) - Rehabiliation Orders Rehab Potential: Fair Rehab Orders: Evaluation for Physical Therapy, Evaluation for Occupational Therapy - Diet Orders No Concentrated Sweets (and diabetic), Cardiac CERTIFICATION: I certify that the transfer of the above named patient to an Extended Care Facility is necessary for the continuing treatment of the diagnosis listed. The above information is true and accurate reflection of patient's current condition. Confidential - Redisclosure prohibited without a patient's written consent.
[2017-03-06] MEDS ORDERED: levoFLOXacin 750 MG TABLET PO SCH (13:00)
--- NOTE | 2017-03-06 16:57 | Electrocardiograph Report ---
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
== END 2017-03-05 16:05 | disposition other institution (70) | DRG 193 ==
LOC: 3ANU 10:27 → EMEROO 10:27 → 3ANU 16:05 → SUATTDRO 02-26 14:04
PROVIDERS: ADMIT Internal Medicine; ATTEND Internal Medicine